=== PATIENT | female | born 1960 | race African-American/Black ===

== ENCOUNTER 2016-07-23 15:09 | Outpatient (RCR) | payer OTHER ==
[~2016-07-23 15:09] MED LIST: CALC-650 PO; CHOL10003 PO; CHOL100055 PO; CHOL40002 PO; CYAN10006 PO; CYAN50003 PO; D50KC PO; ESTR100P26 MC; ESTR1TAB24 PO; FISH1CAP15 PO; FRSM10B60 PO; HORMONE REPLACEMENT EXT; HYDR-3730 PO; HYOS0.1281 PO; LACT20SO2 PO; MAGN100T3 PO; METF500T4 PO; METO-354 PO; OMEP20TA2 PO; PANT40TA2 PO; PHEN37.53 PO; PHEN37.555 PO; POTA20TA8 PO; RT-ALBUINH IH; TPR25T PO; TRIA1TAB2 PO; TRIA1TAB5 PO
--- OUTSIDE RECORDS SUMMARY | 2016-07-23 15:14 | XMS REPORT | Continuity of Care Document ---
Author Author [facility] Organization [facility] Address Unknown Phone Unavailable Care Team Providers Care Drop Wire Hanger Name Role Phone Thania Zhu PCP [phone] Source Comments Some departments are not documenting in the electronic medical record. If you do not see the information that you expected, contact Release of Information in the Health Information Management department at [phone] for further assistance in locating additional records.[facility] Active Allergies and Adverse Reactions Allergen Noted Date Severity Reactions Comments Hydrocodone 03/18/2016 Low NAUSEA ONLY Sulfa (Sulfonamide 03/18/2016 Low NAUSEA ONLY Antibiotics) Current Medications Prescription Sig. Disp. Refills Start End Date Status Date ERGOCALCIFEROL (VITAMIN Take 1,000 mcg by mouth Active D2) (VITAMIN D PO) daily. triamterene/hydrochloroth Take 1 Tab by mouth Active iazide (MAXZIDE) 75/50 mg daily. tablet phentermine(+) 37.5 mg Take 37.5 mg by mouth Active tablet every morning. Patient states don't take everyday. cyanocobalamin (VITAMIN Take 1,000 mcg by mouth Active B-12) 1,000 mcg tablet daily. ALBUTEROL SULFATE Inhale by mouth as Active (VENTOLIN IN) Needed. potassium chloride SR Take 20 mEq by mouth Active (K-DUR) 20 mEq tablet daily. METFORMIN HCL (METFORMIN Take by mouth. Active PO) TOPIRAMATE (TOPAMAX PO) Take by mouth. Active Active Problems Problem Noted Date Bilateral nipple discharge 03/14/2016 Overview: DIAGNOSIS: Bilateral breast pain/itching and bilateral nipple discharge HISTORY: Ms. Frederick is an female who presented [facility] on 03[facility]18[facility]2016 at age 55 for evaluation of bilateral nipple discharge. Cytology of nipple discharge revealed no evidence of blood or malignancy. She reports having nipple discharge on and off for several years. She reports her biggest complaint now is left breast pain and itching that has been present since around December 2015. She has been advised to black currant seed oil, vitamin B complex, oral antihistamine, antifungal, hydrocortisone cream, stress reduction strategies, decreased caffeine intake, and NSAIDs for symptotic relief. BREAST IMAGING: Mammogram: -- Bilateral diagnostic mammogram 11/14/15 ([place], [place]) revealed no mass, architectural distortion, or suspicious calcifications. Ultrasound: -- Bilateral breast ultrasound 11/14/15 ([place], [place]) revealed no focal lesion. Mild duct ectasia with no focal lesion was seen. MRI: -- Bilateral breast MRI 01/31/16 ([place], [place]) revealed duct ectasia within bilateral retroareolar regions. No definite intraluminal mass. No suspicious mass or nonmass enhancement. -- Brain MRI 03/01/16 ([place], [place]) revealed normal pituitary gland. REPRODUCTIVE HEALTH: Age at first Menarche: 13 Age at First Live : N/A Age at Menopause: Hysterectomy in 1999, took HRT from [id number] and from 2012 - November 2015 : 0 Para: 0 : N/A PROCEDURE: pending PERTINENT PMH: HTN, fibromylagia FAMILY HISTORY: Maternal aunt with breast cancer in 60s PHYSICAL EXAM on PRESENTATION: Right - No palpable breast masses. No skin, nipple, or areolar change. Left - No palpable breast masses. No skin, nipple, or areolar change. No supraclavicular or axillary adenopathy. REFERRED BY: Dr Reena Zhu Chronic fatigue 04/09/2015 Disturbance of skin sensation 04/09/2015 Myalgia and myositis 04/09/2015 Dyspnea on exertion 04/09/2015 Most Recent Encounters Date Type Specialty Providers Description 07/22/2016 Ancillary Radiology Outpatient, Radiologist Diagnosis unknown Orders (Primary Dx) 07/09/2016 Hospital Radiology Encounter 07/03/2016 Orders Only Breast Clinic / Breast Olga Rivas MD Bilateral nipple Center discharge (Primary Dx) 07/02/2016 Orders Only Pulmonology Merced-Cindy Franco MD 07/02/2016 Telephone Breast Clinic / Breast Olga Rivas MD Appointment Center 07/01/2016 Telephone Breast Clinic / Breast Olga Rivas MD Referral - requesting a Center 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 06/11/2016 Hospital Radiology Olga Rivas MD Encounter 06/11/2016 Telephone Breast Clinic / Breast Purvi Villafuerte PA-C Results Center 06/10/2016 Screening Form 06/03/2016 Office Visit Oncology Olga Rivas MD Bilateral nipple discharge (Primary Dx) 06/03/2016 Hospital Radiology Olga Rivas MD Encounter 06/03/2016 [facility] Radiology Olga Rivas MD Canceled (PROVIDER Encounter CANCELED) 06/03/2016 Ancillary Breast Clinic / Breast Olga Rivas MD Bilateral nipple Orders Center discharge (Primary Dx) 05/23/2016 Telephone Breast Clinic / Breast Olga Rivas MD Other - BILATERAL nipple Center discharge Social History Tobacco Use Types Packs/Day Years Used Date Never Smoker Smokeless Tobacco: Never Used Alcohol Use Drinks/Week oz/Week Comments No 1-2 a yr Last Filed Vital Signs Vital Sign Reading Time Taken Blood Pressure 121/75 06/03/2016 1:02 PM CDT Pulse 107 06/03/2016 1:02 PM CDT Temperature 37.1 C (98.7 F) 06/03/2016 1:02 PM CDT Respiratory Rate 20 06/03/2016 1:02 PM CDT Height 1.613 m (5' 3.5") 06/03/2016 1:02 PM CDT Weight 83.008 kg (183 lb) 06/03/2016 1:02 PM CDT Body Mass Index 31.9 06/03/2016 1:02 PM CDT Oxygen Saturation 100% 06/03/2016 1:02 PM CDT Plan of Care Date Type Specialty Providers Description 08/04/2016 Appointment Pulmonology Obed Galicia MD [address] [facility] [address] [place] [address] [phone] (Fax) 08/15/2016 Appointment 10/22/2016 Appointment Breast Clinic / Breast Olga Rivas MD Center [address] [place] [address] [phone] (Fax) Health Maintenance Due Date Last Done Comments Hepatitis C Screening 1960 Physical (Comprehensive) 1967 Exam Pertussis Vaccine 1971 Tetanus Vaccine 1977 Cervical Cancer Screening 1981 Colorectal Cancer 2010 Screening Influenza Vaccine 06/05/2016 Breast Cancer Screening 03/18/2018 03/18/2016 Procedures from Last 3 Months Procedure Name Priority Date/Time Associated Diagnosis Comments PROCEDURES-SCAN 06/11/2016 Results for this 4:57 PM CDT procedure are in the results section. Results from Last [address] CHEST EXTERNAL IMAGING (07/09/2016) Narrative This order has been auto finalized and does not contain a result. PROCEDURES-SCAN (06/11/2016 4:57 PM) Narrative Ordered by an unspecified provider. MRI BREAST BILAT WO/W CONTRAST (06/11/2016 10:54 AM) Impressions ASSESSMENT: BIRAD 1-Negative RECOMMENDATION: Follow-up with your physician. Narrative Indicated problem(s): non-bloody discharge, skin changes to breast, and pain in both breasts. [id number] MRI BREAST BILAT W/O W CONTRAST: 2015 - Technologist: Laura Trent cook soup History: 55-year-old female with history of several years bilateral clear nipple discharge from multiple ducts as well as bilateral breast pain and bilateral breast itching. Technique: Bilateral breast MRI was performed with dedicated breast coil, with and without contrast in the axial plane using fat saturation, 3D, and with additional T1 and T2 axial images obtained. Images were interpreted with the aid of CAD, including 3D generation of MIP images, subtractions, and pharmacokinetic analysis. 0.2 ml/kg of Multihance (gadolinium) was injected in bolus fashion. Findings- Background enhancement: Minimal Tissue density- scattered fibroglandular tissue RIGHT BREAST: There is no evidence of abnormal mass or nonmass enhancement, or axillary/internal mammary adenopathy. LEFT BREAST: There is no evidence of abnormal mass or not mass enhancement, or axillary/internal mammary adenopathy. Ancillary findings: None Impression: No MR evidence of malignancy within either breast. Finalized by Maribel Lazar M.D. on 06/11/2016 12:50 PM. Dictated by Maribel Lazar M.D. on 06/11/2016 12:48 PM. Electronically signed and approved by: Maribel Lazar M.D. [id number] Procedure Note Interface, Radiant Results - ThuJun 11, 2016 12:51 PM CDT Indicated problem(s): non-bloody discharge, skin changes to breast, and pain in both breasts. [id number] MRI BREAST BILAT W/O W CONTRAST: 2015 - Technologist: Laura Trent, cook soup History: 55-year-old female with history of several years bilateral clear nipple discharge from multiple ducts as well as bilateral breast pain and bilateral breast itching. Technique: Bilateral breast MRI was performed with dedicated breast coil, with and without contrast in the axial plane using fat saturation, 3D, and with additional T1 and T2 axial images obtained. Images were interpreted with the aid of CAD, including 3D generation of MIP images, subtractions, and pharmacokinetic analysis. 0.2 ml/kg of Multihance (gadolinium) was injected in bolus fashion. Findings- Background enhancement: Minimal Tissue density- scattered fibroglandular tissue RIGHT BREAST: There is no evidence of abnormal mass or nonmass enhancement, or axillary/internal mammary adenopathy. LEFT BREAST: There is no evidence of abnormal mass or not mass enhancement, or axillary/internal mammary adenopathy. Ancillary findings: None Impression: No MR evidence of malignancy within either breast. Finalized by Maribel Lazar M.D. on 06/11/2016 12:50 PM. Dictated by Maribel Lazar M.D. on 06/11/2016 12:48 PM. Electronically signed and approved by: Maribel Lazar M.D. [id number] IMPRESSION ASSESSMENT: BIRAD 1-Negative RECOMMENDATION: Follow-up with your physician. MAMMO DUCT MULTIPLE INCOMPLETE (06/03/2016 11:31 AM) Impressions RECOMMENDATION: Follow-up with your physician of both breasts. Narrative Reason for exam: clinical finding. incompleteductogram Performed by: Moises Feliciano [id number] MAMMO DUCT MULTIPLE INCOMPLETE: JUNE 03, 2016 - Routine views. Technologist: Moises Feliciano Prior study comparison: March 18, 2016, bilateral [id number] MAMMO DIAGNOSTIC SMILEY/ANGELI, performed at [facility] C.March 18, 2016, left breast [id number] US BREAST TARGET LT, performed at [facility]. 55-year-old female with chronic bilateral clear nipple discharge (at least 15 years) and bilateral breast pain and itching, left greater than right, for bilateral ductogram. A small amount of clear nipple discharge was expressed from multiple ducts bilaterally and ductography cannot be adequately performed for evaluation. Patient may benefit from breast MRI with and without contrast if this has not already been performed. Findings and recommendations were discussed with Dr. Rivas by Dr. Govea. Approved by Matthias Romero MD on 06/03/2016 11:41 AM By my electronic signature, I attest that I have personally reviewed the images for this examination and formulated the interpretations and opinions expressed in this report Finalized by Janae GOVEA M.D. on 06/03/2016 1:06 PM. Dictated by Matthias Romero MD on 06/03/2016 11:33 AM. Electronically signed and approved by: Janae Govea M.D. [id number] Procedure Note Interface, Radiant Results - Tue Jun 03, 2016 1:07 PM CDT Reason for exam: clinical finding. incomplete ductogram Performed by: Moises Feliciano [id number] MAMMO DUCT MULTIPLE INCOMPLETE: JUNE 03, 2016 - Routine views. Technologist: Moises Feliciano Prior study comparison: March 18, 2016, bilateral [id number] MAMMO DIAGNOSTIC SMILEY/ANGELI, performed at [facility]. March 18, 2016, left breast [id number] US BREAST TARGET LT, performed at [facility]. 55-year-old female with chronic bilateral clear nipple discharge (at least 15 years) and bilateral breast pain and itching, left greater than right, for bilateral ductogram. A small amount of clear nipple discharge was expressed from multiple ducts bilaterally and ductography cannot be adequately performed for evaluation. Patient may benefit from breast MRI with and without contrast if this has not already been performed. Findings and recommendations were discussed with Dr. Rivas by Dr. Govea. Approved by Matthias Romero MD on 06/03/2016 11:41 AM By my electronic signature, I attest that I have personally reviewed the images for this examination and formulated the interpretations and opinions expressed in this report Finalized by Janae GOVEA M.D. on 06/03/2016 1:06 PM. Dictated by Matthias Romero MD on 06/03/2016 11:33 AM. Electronically signed and approved by: Janae Govea M.D. [id number] IMPRESSION RECOMMENDATION: Follow-up with your physician of both breasts.
== END 2016-10-21 | disposition home or self-care (01) ==
LOC: CARD 15:09
PROVIDERS: ATTEND Internal Medicine Interventional Cardiology
DX: R06.09 Other forms of dyspnea (principal); R07.9 Chest pain, unspecified
CPT/HCPCS: 93225; 93226

== ENCOUNTER → 2017-07-31 | Outpatient (CLI) | payer OTHER ==
[~2017-07-31] MED LIST changes: -D50KC PO; +ERGO50006 PO; +GADOBUTROL 7.5 MMOL/7.5 ML (GADAVIST) VIAL IV ONE
[2017-07-31 10:29] LABS: BLOOD UREA NITROGEN 13 MG/DL (7-18); BUN/CREATININE RATIO 15; CREATININE SERUM 0.86 MG/DL (0.60-1.30); GFR ESTIMATED > 60
--- NOTE | 2017-08-03 20:22 | Diagnostic Imaging Report ---
TECHNIQUE: Utilizing 1.5 Katie magnet, patient was placed in a prone position with 8-channel dual breast coil utilized. Axial STIR precontrasted image and axial T1 fat-sat postcontrast high-resolution images obtained. Sagittal T2-weighted images precontrast, bilaterally, as well. Sagittal vibrant temporal images were obtained pre and post contrast with bolus technique utilized of gadolinium. Images are postcontrast immediately and subsequently for 7 minutes. Pre and post contrasted images are then evaluated with [employer] for evaluation of possible angiogenesis. INDICATION: Bilateral clear nipple discharge. COMPARISON: June 11, 2016, and January 31, 2016. FINDINGS: The bilateral breasts demonstrate mild background glandularity. The bilateral breasts demonstrate minimal background enhancement. No significant axillary or internal mammary adenopathy. Visualized portions of the upper abdomen are unremarkable. Dilated ducts are noted within the bilateral retroareolar regions. These dilated ducts extend into all four quadrants of the bilateral breasts. This appears similar to the prior examination without definite filling defect. No additional suspicious mass or non-mass enhancement within either breast. IMPRESSION: Stable examination without evidence of malignancy. Stable symmetric bilateral dilated ducts without intraluminal filling defect. ACR BI-RADS Category 2: Benign findings. Follow-up: The most recent mammograms for comparison are from March 2016. If these are the most recent mammograms, then the patient will be due for bilateral mammograms at this time. If patient has had mammograms performed at an outside facility, then those images and report should be referenced. Recommend clinical correlation and clinical follow-up for the bilateral clear nipple discharge without concerning MRI correlate. Dictated by: Dictated on workstation # [id number]
== END ==
LOC: RAD 10:00
PROVIDERS: ATTEND Nurse Practitioner Family
DX: N64.52 Nipple discharge (principal)
CPT/HCPCS: 36415; 77059; 82565; 84520

== ENCOUNTER → 2018-01-05 | Outpatient (CLI) | payer SELFPAY ==
[~2018-01-05] MED LIST changes: +CATHETER FLUSH 10 ML SYR IV PRN; -GADOBUTROL 7.5 MMOL/7.5 ML (GADAVIST) VIAL IV ONE; +IOHEXOL 350 MG/ML 150 ML (OMNIPAQUE 350) VIAL IV ONE; +NS 250 ML (IVPB) BAG IV ONE
[2018-01-05 08:06] VITALS: BP 117/84
[2018-01-05 08:09] VITALS: BP 223/99
[2018-01-05 08:12] VITALS: BP 157/85
[2018-01-05 08:17] VITALS: BP 114/86
--- NOTE | 2018-01-05 09:32 | Diagnostic Imaging Report ---
PROCEDURE: CT angiography of the chest with contrast. TECHNIQUE: Multiple contiguous axial images were obtained through the chest after uneventful bolus administration of intravenous contrast. Reconstructed CTA MIP acquisitions were also performed. INDICATION: Shortness of breath on exertion. Blood clot under left arm. Decreased sats on cardiac stress test. FINDINGS: There are no discrete pulmonary nodules, masses or infiltrates. No pleural or pericardial fluid. There is no pneumothorax. No pathologically enlarged adenopathy in the chest. The thoracic aorta is normal in caliber without evidence of dissection. There are no filling defects seen within the pulmonary arteries to suggest pulmonary embolism. There is a small cyst in the left kidney. The remaining intra-abdominal structures are unremarkable. The osseous structures are grossly unremarkable. IMPRESSION: No acute abnormality of the chest. Specifically there is no evidence of pulmonary embolism or aortic dissection. Left renal cyst. Dictated by: Dictated on workstation # [id number]
--- NOTE | 2018-01-06 06:24 | STRESS TEST ---
DATE OF SERVICE: 01/05/2018 REPORT TITLE: RESTING AND POST EXERCISE TECHNETIUM-99M TETROFOSMIN SPECT CT IMAGING. ORDERING PHYSICIAN: Dr. Hao Jacob. PRIMARY PHYSICIAN: Dr. Hao Jacob. CLINICAL DIAGNOSIS: Chest discomfort. DESCRIPTION: Baseline images were carried out after injection of 10.73 mCi technetium-99m Tetrofosmin. This was followed by exercise on a treadmill. The details of the stress test are reported separately by Dr. Jacob, under whose supervision the stress test was carried out. The patient received 30.7 mCi technetium-99m Tetrofosmin after she had attained 85% of maximum predicted heart rate and the exercise was continued for another minute. Review of images at rest and following stress does not indicate any significant perfusion defect consistent with significant myocardial ischemia or infarction. Gated images show normal global systolic function with normal regional wall motion. Left ventricular ejection fraction calculated to be 71%. Left ventricular end diastolic volume is 15 mL. TID is absent (1). CONCLUSIONS: 1. No evidence of significant myocardial ischemia or infarction is seen. 2. Normal to hyperdynamic left ventricle with a calculated ejection fraction of 71%. 3. Somewhat low-volume, hyperdynamic left ventricle. Job ID: [id number] DocumentID: [id number] Dictated Date: 01/05/2018 17:54:54 Manufacturing Recruiter Date: 01/05/2018 21:51:56 Dictated By: BARNEY SHELL MD, MA, FACP, FACC, MTDD
== END ==
LOC: CARD 06:57
PROVIDERS: ATTEND Internal Medicine
DX: R07.9 Chest pain, unspecified (principal)
CPT/HCPCS: 71275; 78452; 93017

== ENCOUNTER → 2018-06-26 | Outpatient (CLI) | payer SELFPAY ==
[~2018-06-26] MED LIST changes: -CATHETER FLUSH 10 ML SYR IV PRN; -IOHEXOL 350 MG/ML 150 ML (OMNIPAQUE 350) VIAL IV ONE; +METF-397 PO; -METF500T4 PO; -NS 250 ML (IVPB) BAG IV ONE
== END ==
LOC: LAB 08:20
PROVIDERS: ATTEND Internal Medicine
DX: E11.9 Type 2 diabetes mellitus without complications (principal)
CPT/HCPCS: 36415; 83036

== ENCOUNTER 2018-07-05 11:48 | Emergency (ER) | payer SELFPAY ==
[~2018-07-05] VITALS: Ht 162.6 cm; Wt 90.7 kg
--- NOTE | 2018-07-05 12:09 | ED General ---
General Stated Complaint: LEFT ARM PAIN;POSS BLOOD CLOT Source of Information: Patient Exam Limitations: No Limitations History of Present Illness Date Seen by Provider: Jul 05, 2018 Time Seen by Provider: 12:03 Initial Comments To ER with several complaints. She believes she may have a clot in the left arm. She had a clot in the left arm venous system in January of this year. She completed 3 months of Xarelto therapy. This clot was discovered after she noticed some bruising to the left forearm following knee surgery. She has no other known history of clotting disorder. About 3 weeks ago she had blood drawn from the left antecubital fossa. About 2 weeks ago she developed this pain and discomfort in the volar surface of the left forearm worse with flexion of the wrist. She does not notice any swelling or redness of the upper extremity. She reports chronic swelling to the bilateral lower extremities, and unusual small bruise to the right medial thigh that she does not recall getting and another small bruise to the left medial lower leg that she does not recall getting. She denies any shortness of breath but she does also report some central minor chest pain constant for about 3 days. She states "I feel like I'm coming down with the flu and it settled in my chest". She denies any cough or fevers or chills. Timing/Duration: Changing Over Time Severity: Moderate Associated Systoms: Chest Pain; No Cough, No Fever/Chills; Malaise; No Nausea/ Vomiting, No Seizure, No Shortness of Air, No Syncope, No Weakness Allergies and Home Medications Allergies Coded Allergies: No Known Drug Allergies (Unverified , 06/03/16) Home Medications Cholecalciferol (Vitamin D3) 1,000 Unit Tablet, 1,000 UNIT PO DAILY, (Reported) Cyanocobalamin (Vitamin B-12) 5,000 Mcg Tab.rapdis, 2,500 MCG PO DAILY, ( Reported) TAKES 1/2 (5,000MCG) TABLET Ergocalciferol (Vitamin D2) 50,000 Unit Capsule, 50,000 UNIT PO Robles, (Reported) Metformin HCl 500 Mg Tablet, 250 MG PO BID, (Reported) TAKES 1/2 (500MG) TABLET Potassium Chloride 20 Meq Tab.er.prt, 20 MEQ PO BID, (Reported) Topiramate 25 Mg Tablet, 25 MG PO BID, (Reported) Triamterene/Hydrochlorothiazid 1 Each Tablet, 1 TAB PO DAILY, (Reported) Patient Home Medication List Home Medication List Reviewed: Yes Review of Systems Review of Systems Constitutional: see HPI; No chills; malaise EENTM: see HPI Respiratory: no symptoms reported; No cough, No short of breath Cardiovascular: see HPI, chest pain Musculoskeletal: see HPI Skin: see HPI Psychiatric/Neurological: No Symptoms Reported Hematologic/Lymphatic: No Symptoms Reported Past Hqcnmuh-Uibyhy-Fzvhsj Hx Patient Social History Recent Hopitalizations: No Immunizations Up To Date Tetanus Booster (TDap): Unknown PED Vaccines UTD: No Seasonal Allergies Seasonal Allergies: No Past Medical History Appendectomy, Hysterectomy Currently Using CPAP: No Currently Using BIPAP: No Reproductive Disorders: Yes (1999 total hysterectomy) Female Reproductive Disorders: Denies OPTICIAN History: Hysterectomy Sexually Transmitted Disease: No HIV/AIDS: No Family Medical History Patient reports no known family medical history. No Pertinent Family Hx Physical Exam Vital Signs Vital Signs - First Documented 07/05/18 12:00 Temp 98.0 Pulse 87 Resp 18 B/P (MAP) 153/88 (109) Capillary Refill : Height, Weight, BMI Height: 5'2.00" Weight: 185lbs. 0.0oz. 83.315128vo; 33.8 BMI Method:Estimated General Appearance: No Apparent Distress, WD/WN, Other (she is in no distress, there is no tachycardia or hypoxia. She is 100% on room air oxygen saturation, heart rate in the 80s. She is not on any beta blockers.) Eyes: Bilateral Eye Normal Inspection, Bilateral Eye PERRL, Bilateral Eye EOMI HEENT: PERRL/EOMI Neck: Full Range of Motion, Normal Inspection Respiratory: Normal Breath Sounds, No Accessory Muscle Use, No Respiratory Distress Cardiovascular: Regular Rate, Rhythm, Normal Peripheral Pulses Gastrointestinal: Normal Bowel Sounds, Non Tender, Soft Extremity: Normal Capillary Refill, No Calf Tenderness, Other (minor small nickel-sized bruises one to the medial right thigh as she described and one to the medial left lower leg as she described. There is otherwise no obvious swelling to either lower or upper extremity. There is no ecchymosis or erythema to the volar aspect of the proximal left forearm where she complains of pain) Neurologic/Psychiatric: Alert, Oriented x3, No Motor/Sensory Deficits Progress/Results/Core Measures Suspected Sepsis SIRS Temperature: Pulse: Respiratory Rate: Laboratory Tests 07/05/18 12:44: White Blood Count 7.8 Blood Pressure / Mean: Laboratory Tests 07/05/18 12:44: Creatinine 0.86, Platelet Count 262, Total Bilirubin 0.5 Results/Orders Lab Results Laboratory Tests Test 07/05/18 12:44 Range/Units White Blood Count 7.8 4.3-11.0 10^3/uL Red Blood Count 4.83 4.35-5.85 10^6/uL Hemoglobin 15.2 11.5-16.0 G/DL Hematocrit 46 35-52 % Mean Corpuscular Volume 95 80-99 FL Mean Corpuscular Hemoglobin 32 25-34 PG Mean Corpuscular Hemoglobin Concent 33 32-36 G/DL Red Cell Distribution Width 13.9 10.0-14.5 % Platelet Count 262 130-400 10^3/uL Mean Platelet Volume 9.2 7.4-10.4 FL Neutrophils (%) (Auto) 59 42-75 % Lymphocytes (%) (Auto) 33 12-44 % Monocytes (%) (Auto) 7 0-12 % Eosinophils (%) (Auto) 1 0-10 % Basophils (%) (Auto) 0 0-10 % Neutrophils # (Auto) 4.6 1.8-7.8 X 10^3 Lymphocytes # (Auto) 2.5 1.0-4.0 X 10^3 Monocytes # (Auto) 0.6 0.0-1.0 X 10^3 Eosinophils # (Auto) 0.1 0.0-0.3 10^3/uL Basophils # (Auto) 0.0 0.0-0.1 10^3/uL Sodium Level 140 135-145 MMOL/L Potassium Level 4.1 3.6-5.0 MMOL/L Chloride Level 107 98-107 MMOL/L Carbon Dioxide Level 22 21-32 MMOL/L Anion Gap 11 5-14 MMOL/L Blood Urea Nitrogen 13 7-18 MG/DL Creatinine 0.86 0.60-1.30 MG/DL Estimat Glomerular Filtration Rate > 60 BUN/Creatinine Ratio 15 Glucose Level 104 70-105 MG/DL Calcium Level 9.9 8.5-10.1 MG/DL Corrected Calcium 9.7 8.5-10.1 MG/DL Total Bilirubin 0.5 0.1-1.0 MG/DL Aspartate Amino Transf (AST/SGOT) 32 5-34 U/L Alanine Aminotransferase (ALT/SGPT) 35 0-55 U/L Alkaline Phosphatase 148 H 40-136 U/L Troponin I < 0.30 <0.30 NG/ML B-Type Natriuretic Peptide < 10.0 <100.0 PG/ML Total Protein 8.1 6.4-8.2 GM/DL Albumin 4.3 3.2-4.5 GM/DL Thyroid Stimulating Hormone (TSH) 0.80 0.35-4.94 UIU/ML My Orders Orders - WILIAM LOPEZ APRN Us Venous Upper Ext Lt (07/05/18 11:53) Troponin I (07/05/18 12:02) Ekg Tracing (07/05/18 12:02) Cbc With Automated Diff (07/05/18 12:02) Comprehensive Metabolic Panel (07/05/18 12:02) BNP (07/05/18 12:02) Thyroid Stimulating Hormone (07/05/18 12:02) Vital Signs/I&O 07/05/18 12:00 Temp 98.0 Pulse 87 Resp 18 B/P (MAP) 153/88 (109) Capillary Refill : Departure Communication (Admissions) 1226-she had a cardiac catheterization done here in June 2016 showing no angiographically significant coronary artery disease. Impression Primary Impression: Chest pain Additional Impression: Left forearm pain Disposition: 01 HOME, SELF-CARE Condition: Stable Departure-Patient Inst. Decision time for Depature: 12:08 Referrals: SANDRA JACOB DO (PCP/Family) Primary Care Physician Patient Instructions: General (DC) Add. Discharge Instructions: 1. Return to ER for any worsening pain, fevers or other concerns. Tylenol and ibuprofen for pain control. Follow-up with Dr. Jacob. Call today to make an appointment to be seen later this week for recheck. Copy Copies To 1: SANDRA JACOB PETER J APRN Jul 05, 2018 12:09
--- NOTE | 2018-07-05 12:43 | Diagnostic Imaging Report ---
PROCEDURE: US venous upper extremity left. TECHNIQUE: Multiple realtime grayscale images were obtained of left upper extremity in various projections. Duplex Doppler and and color Doppler images were also obtained. INDICATION: Left arm pain and swelling. The left internal jugular vein as well as the left subclavian and axillary veins are patent. The brachial vein is patent. The basilic and cephalic as well as the radial and ulnar veins are patent. No thrombus is seen. No fluid collection is identified. IMPRESSION: No evidence of a left upper extremity DVT. Dictated by: Dictated on workstation # [id number]
--- OUTSIDE RECORDS SUMMARY | 2018-07-05 12:47 | XMS REPORT ---
Author Author MELIA MARIN [facility] eClinicalWorks Address Unknown Phone Unavailable Care Team Providers Care Film Writer Name Role Phone MELIA MARIN Unavailable Allergies No Known Allergies Problems Problem Type Condition Code Onset Dates Condition Status Problem Vitamin D deficiency E55.9 Active Problem Chronic kidney disease, unspecified stage N18.9 Active Problem Mild intermittent asthma without complication J45.20 Active Problem Prediabetes R73.09 Active Problem Carpal tunnel syndrome, unspecified laterality G56.00 Active Problem Lumbosacral radiculopathy M54.17 Active Problem Shortness of breath R06.02 Active Problem Fibromyalgia M79.7 Active Medications No Known Medications Results No Known Results Summary Purpose eClinicalWorks Submission
--- OUTSIDE RECORDS SUMMARY | 2018-07-05 12:47 | XMS REPORT ---
Author MELIA Fraser eClinicalWorks Address Unknown Phone Unavailable Care Team Providers Care Music Researcher Name Role Phone MELIA MARIN Unavailable Allergies, Adverse Reactions, Alerts Substance Reaction Event Type N.K.D.A. Info Not Available Non Drug Allergy Problems Problem Type Condition Code Onset Dates Condition Status Assessment Fibromyalgia M79.7 Active Problem Lumbosacral radiculopathy M54.17 Active Problem Vitamin D deficiency E55.9 Active Problem Menopausal and perimenopausal disorder N95.9 Active Problem Prediabetes R73.09 Active Problem Chronic kidney disease, stage I N18.1 Active Problem Fibromyalgia M79.7 Active Problem Carpal tunnel syndrome, unspecified laterality G56.00 Active Problem Mild intermittent asthma without complication J45.20 Active Problem Shortness of breath R06.02 Active Assessment Swelling R60.9 Active Assessment Menopausal and perimenopausal disorder N95.9 Active Assessment Left knee pain M25.562 Active Assessment Right wrist pain M25.531 Active Assessment Chronic kidney disease, stage I N18.1 Active Medications Medication Code System Code Instructions Start Date End Date Status Dosage Ventolin HFA [facility] [address]-67 108 (90 Base) MCG/ACT Inhalation every 4 hrs May 24, 2015 2 puffs as needed Vitamin D2 [facility] [address] 50,000 unit Nov 08, 2014 take 1 capsule (50,000 unit) by oral route once weekly for 12 weeks Metformin HCl [facility] 67731346381 1000 MG Orally Twice a day 1 tablet with meals Vitamin B-[address] [facility] [address]-35 1000 MCG Orally Once a day 1 tablet Triamterene-HCTZ [facility] 88231965632 75-50MG Orally Once a day 1 tablet in the morning Estradiol [facility] 40288299171 1MG take 1 tablet by Oral route 1 time per day Lyrica [facility] [address]-77 75 MG Orally Twice a day Oct 09, 2015 1 capsule Proventil HFA [facility] [address]-60 108 (90 Base) MCG/ACT Inhalation every 4 hrs May 24, 2015 2 puffs as needed Procedures Procedure Coding System Code Date Office Visit, Est Pt., Level 4 CPT-4 43260 Oct 09, 2015 X-RAY EXAM OF WRIST CPT-4 28172 Oct 09, 2015 X-RAY EXAM OF KNEE, 3 CPT-4 65098 Oct 09, 2015 Vital Signs Date/Time: Oct 09, 2015 Temperature 98.1 F Weight 174.9 lbs Height 64 in BMI 30.02 Index Blood Pressure Diastolic 70 mmHg Blood Pressure Systolic 138 mmHg Cardiac Monitoring Heart Rate 98 bpm Results No Known Results Summary Purpose eClinicalWorks Submission
--- OUTSIDE RECORDS SUMMARY | 2018-07-05 12:47 | XMS REPORT | Clinical Summary ---
Author Author [facility] Organization [facility] Address Unknown Phone Unavailable Care Team Providers Care Bridge Teacher Name Role Phone Gege Daniel MD Unavailable Outpatient, Radiologist Unavailable Unavailable Francia Malik PA-C Unavailable Reena Zhu MD PCP Evelyne Freire RN Unavailable Unavailable Olga Rivas MD Unavailable Purvi Villafuerte PA-C Unavailable Source Comments Some departments are not documenting in the electronic medical record. If you do not see the information that you expected, contact Release of Information in the Health Information Management department at [phone] for further assistance in locating additional records.[facility] Allergies Active Allergy Reactions Severity Noted Date Comments Hydrocodone NAUSEA ONLY Low 03/18/2016 Sulfa (Sulfonamide NAUSEA ONLY Low 03/18/2016 Antibiotics) Current Medications Prescription Sig. Disp. Refills Start End Date Status Date ERGOCALCIFEROL (VITAMIN Take 1,000 mcg by mouth Active D2) (VITAMIN D PO) daily. cyanocobalamin (VITAMIN Take 2,500 mcg by mouth Active B-12) 1,000 mcg tablet daily. ALBUTEROL SULFATE Inhale by mouth as Active (VENTOLIN IN) Needed. TOPIRAMATE (TOPAMAX PO) Take 25 mg by mouth twice Active daily. potassium chloride SR Take 20 mEq by mouth Active (K-DUR) 20 mEq tablet twice daily. Take with a meal and a full glass of water. metFORMIN (GLUCOPHAGE) Take 250 mg by mouth Active 500 mg tablet twice daily with meals. ergocalciferol (VITAMIN Take 1 Cap by mouth every Active D-2) 50,000 unit capsule 7 days. triamterene-hydrochloroth Take 0.5 Tabs by mouth 90 Tab 09/08/20 Active iazide (MAXZIDE) 75-50 mg every morning. 16 tablet nadolol(+) (CORGARD) 20 Take 1 Tab by mouth twice 90 Tab 0 09/25/20 Active mg tablet daily. You will start 16 with half tablet twice a day then after a week increase to a full tablet twice a day. Active Problems Problem Noted Date Tachycardia 09/08/2016 Obstructive sleep apnea 09/08/2016 Substernal chest pain 09/08/2016 Bilateral nipple discharge 03/14/2016 Overview: DIAGNOSIS: Bilateral [...] IMAGING: Mammogram: -- Bilateral diagnostic mammogram 11/14/15 ([place], [place]) revealed no mass, architectural distortion, or suspicious calcifications. Ultrasound: -- Bilateral breast ultrasound 11/14/15 ([place], [place]) revealed no focal lesion. Mild duct ectasia with no focal lesion was seen. MRI: -- Bilateral breast MRI 01/31/16 ([place], [place]) revealed duct ectasia within bilateral retroareolar regions. No definite intraluminal mass. No suspicious mass or nonmass enhancement. -- Brain MRI 03/01/16 ([place], [place]) revealed normal pituitary gland. REPRODUCTIVE HEALTH: Age at first Menarche: 13 Age at First Live : N/A Age at Menopause: Hysterectomy in 1999, took HRT from 6633-1778 and from 2012 - November 2015 : [...] and myositis 04/09/2015 Dyspnea on exertion 04/09/2015 Family History Medical History Relation Name Comments Arthritis-rheumatoid Father Diabetes Father Hypertension Father Cancer-Breast Maternal Aunt 60s Cancer Maternal Aunt cervical 60-70s Hypertension Maternal Aunt Arthritis-rheumatoid Mother Cancer Mother non-hodgkins Hypertension Mother Relation Name Status Comments Father Maternal Aunt Maternal Aunt Maternal Grandfather Maternal Grandmother Mother Paternal Grandfather Paternal Grandmother Social History Tobacco Use Types Packs/Day Years Used Date Never Smoker Smokeless Tobacco: Never Used Alcohol Use Drinks/Week oz/Week Comments No 1-2 a yr Sex Assigned at Date Recorded Not on file Last Filed Vital Signs Vital Sign Reading Time Taken Blood Pressure 118/86 09/08/2016 12:47 PM TEST HOLE DRILLER Pulse 100 09/08/2016 12:47 PM TEST [employer]LE [facility]RILLER Temperature 37.1 C (98.8 F) 08/04/2016 12:36 PM CDT Respiratory Rate 16 08/04/2016 12:36 PM CDT Oxygen Saturation 98% 08/04/2016 12:36 PM CDT Inhaled Oxygen - - Concentration Weight 86.2 kg (190 lb) 09/08/2016 12:47 PM TEST HOLE DRILLER Height 162.6 cm (5' 4") 09/08/2016 12:47 PM TEST HOLE DRILLER Body Mass Index 32.61 09/08/2016 12:47 PM TEST HOLE DRILLER Plan of Treatment Health Maintenance Due Date Last Done Comments HEPATITIS C SCREENING 1960 PHYSICAL (COMPREHENSIVE) 1967 EXAM PERTUSSIS VACCINE 1971 HIV SCREENING 1975 TETANUS VACCINE 1977 CERVICAL CANCER SCREENING 1990 COLORECTAL CANCER 2010 SCREENING SHINGLES RECOMBINANT 2010 VACCINE (1 of 2) BREAST CANCER SCREENING 03/18/2017 03/18/2016 INFLUENZA VACCINE 05/05/2018 Results Not on filefrom Last 3 Months
--- OUTSIDE RECORDS SUMMARY | 2018-07-05 12:47 | XMS REPORT ---
Author Author MELIA MARIN [facility] eClinicalWorks Address Unknown Phone Unavailable Care Team Providers Care Folding Rules Printing Machine Operator Name Role Phone MELIA MARIN CP Unavailable Allergies No Known Allergies Problems Problem Type Condition ICD-9 Code Onset Dates Condition Status Problem Prediabetes 790.29 Active Problem Asthma 493.90 Active Problem Shortness of breath 786.05 Active Problem Chronic kidney disease 585.9 Active Problem Lumbosacral radiculopathy at S1 724.4 Active Problem Vitamin D deficiency 268.9 Active Problem Fibromyalgia 729.1 Active Problem Carpal tunnel syndrome on right 354.0 Active Medications Medication Code System Code Instructions Start Date End Date Status Dosage Triamterene-HCTZ [facility] 83421162307 75-50 Orally Once a day 1 tablet in the morning Results No Known Results Summary Purpose eClinicalWorks Submission
--- OUTSIDE RECORDS SUMMARY | 2018-07-05 12:47 | XMS REPORT ---
Author Author MELIA MARIN eClinicalWorks Address Unknown Phone Unavailable Care Team Providers Care Sales Department Manager Name Role Phone MELIA MARIN CP Unavailable Allergies No Known Allergies Problems Problem Type Condition Code Onset Dates Condition Status Assessment Other mcfp (current) drug therapy Z79.899 Active Problem Vitamin D deficiency E55.9 Active Assessment Chronic kidney disease, stage III (moderate) N18.3 Active Assessment Other fatigue R53.83 Active Problem Chronic kidney disease, unspecified stage N18.9 Active Problem Mild intermittent asthma without complication J45.20 Active Problem Prediabetes R73.09 Active Problem Carpal tunnel syndrome, unspecified laterality G56.00 Active Problem Lumbosacral radiculopathy M54.17 Active Problem Shortness of breath R06.02 Active Problem Fibromyalgia M79.7 Active Medications No Known Medications Procedures Procedure Coding System Code Date ASSAY OF PROTEIN, URINE CPT-4 24240 Oct 03, 2015 ASSAY OF URINE CREATININE CPT-4 07294 Oct 03, 2015 RENAL FUNCTION PANEL CPT-4 96527 Oct 03, 2015 URINE CULTURE/COLONY COUNT CPT-4 77951 Oct 03, 2015 COMPLETE CBC W/AUTO DIFF WBC CPT-4 93887 Oct 03, 2015 ASSAY OF MAGNESIUM CPT-4 53688 Oct 03, 2015 URINALYSIS, AUTO, W/O SCOPE CPT-4 05428 Oct 03, 2015 VENIPUNCT, ROUTINE* CPT-4 67900 Oct 03, 2015 Results Name Result Date Reference Range Unit Abnormality Flag ROUTINE VENIPUNCTURE Summary Purpose eClinicalWorks Submission
--- OUTSIDE RECORDS SUMMARY | 2018-07-05 12:48 | XMS REPORT ---
Author Author ANGEL LUIS GOEL eClinicalWorks Address Unknown Phone Unavailable Care Team Providers Care Spinner Fixer Name Role Phone ANGEL LUIS GOEL CP Unavailable Allergies, Adverse Reactions, Alerts Substance Reaction Event Type Sulfacetamide Sodium Info Not Available Drug Allergy Codeine Sulfate Info Not Available Drug Allergy Problems Problem Type Condition Code Onset Dates Condition Status Problem Other constipation K59.09 Active Problem Breast tenderness N64.4 Active Problem Dense breast tissue R92.2 Active Problem Nipple discharge N64.52 Active Assessment Encounter for dental examination Z01.20 Active Problem History of hysterectomy Z90.710 Active Problem Encounter for dental examination Z01.20 Active Problem Stress F43.9 Active Problem Hormone replacement therapy Z79.890 Active Problem Left knee pain M25.562 Active Problem Depression, unspecified depression type F32.9 Active Problem Carpal tunnel syndrome, unspecified laterality G56.00 Active Problem Fibromyalgia M79.7 Active Problem Vitamin D deficiency E55.9 Active Problem Lumbosacral radiculopathy M54.17 Active Problem Prediabetes R73.09 Active Problem Menopausal and perimenopausal disorder N95.9 Active Problem Shortness of breath R06.02 Active Problem Chronic kidney disease, stage I N18.1 Active Problem Mild intermittent asthma without complication J45.20 Active Problem Lower abdominal tenderness R10.819 Active Medications Medication Code System Code Instructions Start Date End Date Status Dosage Vitamin D (Cholecalciferol) [facility] [address]-27 1000 UNIT Orally Once a day 1 tablet Triamterene-HCTZ [facility] 22165116038 75-50MG Orally Once a day 1 tablet in the morning Vitamin B-12 [facility] [address]-93 1000 MCG Orally Once a day 1 tablet Estradiol [facility] [address]-08 1 MG Orally Once a day Oct 15, 2015 1 tablet Amitriptyline HCl [facility] [address]-62 10 MG Orally Once a day at bedtime, increase to 2 tabs after 1 week and 3 tabs after 2 weeks, call for further increase if needed Nov 06, 2015 1 tablet Ventolin HFA [facility] [address]-60 108 (90 Base) MCG/ACT Inhalation every 4 hrs May 24, 2015 2 puffs as needed Procedures Procedure Coding System Code Date INTRAORL-PERIAPICAL 1 FILM 53834 CPT-4 D0220 Nov 08, 2015 INTRAORL-PERIAPICAL EA ADD FILM CPT-4 D0230 Nov 08, 2015 COMP ORAL EVALUATION - NEW/EST PT CPT-4 D0150 Nov 08, 2015 Billing Notes on claim CPT-4 EC109 Nov 08, 2015 TOPICAL FLUORIDE VARNISH CPT-4 D1206 Nov 08, 2015 BITEWINGS - FOUR FILMS CPT-4 D0274 Nov 08, 2015 INTRAORL-PERIAPICAL EA ADD FILM CPT-4 D0230 Nov 08, 2015 PROPHYLAXIS - ADULT CPT-4 D1110 Nov 08, 2015 PANORAMIC FILM SEE ALSO CODE 60667 CPT-4 D0330 Nov 08, 2015 Vital Signs Date/Time: Nov 08, 2015 Blood Pressure Diastolic 79 mmHg Blood Pressure Systolic 118 mmHg Cardiac Monitoring Heart Rate 89 bpm Results No Known Results Summary Purpose eClinicalWorks Submission
--- OUTSIDE RECORDS SUMMARY | 2018-07-05 12:48 | XMS REPORT ---
Author Author NAZ MYERS Organization [employer]Clinical[employer] Address Unknown Phone Unavailable Care Team Providers Care Paint Mixer Machine Name Role Phone NAZ MYERS CP Unavailable Allergies, Adverse Reactions, Alerts Substance Reaction Event Type Sulfacetamide Sodium Info Not Available Drug Allergy Codeine Sulfate Info Not Available Drug Allergy Problems Problem Type Condition Code Onset Dates Condition Status Assessment Encounter for dental examination Z01.20 Active Problem Lumbosacral radiculopathy M54.17 Active Problem Vitamin D deficiency E55.9 Active Problem Menopausal and perimenopausal disorder N95.9 Active Problem Prediabetes R73.09 Active Problem Chronic kidney disease, stage I N18.1 Active Problem Fibromyalgia M79.7 Active Problem Carpal tunnel syndrome, unspecified laterality G56.00 Active Problem Mild intermittent asthma without complication J45.20 Active Problem Shortness of breath R06.02 Active Medications Medication Code System Code Instructions Start Date End Date Status Dosage Lyrica [facility] [address]-80 75 MG Orally Twice a day Oct 09, 2015 1 capsule Estradiol [facility] [address]-35 1 MG Orally Once a day Oct 15, 2015 1 tablet Ventolin HFA [facility] [address]-86 108 (90 Base) MCG/ACT Inhalation every 4 hrs May 24, 2015 2 puffs as needed Vitamin D2 [facility] [address] 50,000 unit Nov 08, 2014 take 1 capsule (50,000 unit) by oral route once weekly for 12 weeks Triamterene-HCTZ [facility] 88331993691 75-50MG Orally Once a day 1 tablet in the morning Vitamin B-12 [facility] [address]-78 1000 MCG Orally Once a day 1 tablet Procedures Procedure Coding System Code Date LTD ORAL EVALUATION - PROBLEM FOCUS CPT-4 D0140 Oct 23, 2015 Vital Signs Date/Time: Oct 23, 2015 Blood Pressure Diastolic 67 mmHg Blood Pressure Systolic 106 mmHg Results No Known Results Summary Purpose eClinicalWorks Submission
--- OUTSIDE RECORDS SUMMARY | 2018-07-05 12:48 | XMS REPORT ---
Author Author MELIA MARIN [facility] eClinicalWorks Address Unknown Phone Unavailable Care Team Providers Care Sulfur Chloride Operator Name Role Phone MELIA MARIN Unavailable Allergies [...]
--- OUTSIDE RECORDS SUMMARY | 2018-07-05 12:48 | XMS REPORT ---
Author MELIA Fraser eClinicalWorks Address Unknown Phone Unavailable Care Team Providers Care Aircraft Detail Draftsperson Name Role Phone MELIA MARIN CP Unavailable Allergies, Adverse Reactions, Alerts Substance Reaction Event Type N.K.D.A. Info Not Available Non Drug Allergy Problems Problem Type Condition ICD-9 Code Onset Dates Condition Status Assessment Asthma 493.90 Active Problem Prediabetes 790.29 Active Assessment Chronic kidney disease 585.9 Active Problem Asthma 493.90 Active Problem Shortness of breath 786.05 Active Problem Chronic kidney disease 585.9 Active Problem Lumbosacral radiculopathy at S1 724.4 Active Problem Vitamin D deficiency 268.9 Active Problem Fibromyalgia 729.1 Active Problem Carpal tunnel syndrome on right 354.0 Active Medications Medication Code System Code Instructions Start Date End Date Status Dosage Phentermine HCl [facility] [address]-18 37.5 MG Orally Once a day 1 tablet Vitamin D2 [facility] 68318-[address]36 50,000 unit Nov 08, 2014 take 1 capsule (50,000 unit) by oral route once weekly for 12 weeks Proventil HFA [facility] [address]-80 108 (90 Base) MCG/ACT Inhalation every 4 hrs May 24, 2015 2 puffs as needed Triamterene-HCTZ [facility] 19878731472 75-50 TAKE ONE TABLET BY MOUTH ONCE DAILY Vitamin B-12 [facility] [address]-68 1000 MCG Orally Once a day 1 tablet Naproxen [facility] [address]-01 500 MG Orally every 12 hrs 1 tablet as needed Estradiol [facility] 27507849726 1MG take 1 tablet by Oral route 1 time per day Procedures Procedure Coding System Code Date URINALYSIS, AUTO W/SCOPE CPT-4 02815 May 24, 2015 ASSAY OF PROTEIN, URINE CPT-4 12652 May 24, 2015 BASIC METABOLIC PANEL CPT-4 63303 May 24, 2015 Office Visit, Est Pt., Level 3 CPT-4 28017 May 24, 2015 ASSAY OF URINE CREATININE CPT-4 53421 May 24, 2015 VENIPUNCT, ROUTINE* CPT-4 94192 May 24, 2015 Vital Signs Date/Time: May 24, 2015 Temperature 97.4 F Weight 168.5 lbs Height 64 in BMI 28.92 Index Blood Pressure Diastolic 76 mmHg Blood Pressure Systolic 138 mmHg Cardiac Monitoring Heart Rate 120 bpm Results Name Result Date Reference Range Unit Abnormality Flag ROUTINE VENIPUNCTURE Summary Purpose eClinicalWorks Submission
--- OUTSIDE RECORDS SUMMARY | 2018-07-05 12:48 | XMS REPORT ---
Author Author MELIA MARIN eClinicalWorks Address Unknown Phone Unavailable Care Team Providers Care Correctional Medicine Physician Name Role Phone MELIA MARIN CP Unavailable Allergies, Adverse Reactions, Alerts Substance Reaction Event Type Sulfacetamide Sodium Info Not Available Drug Allergy Codeine Sulfate Info Not Available Drug Allergy Problems Problem Type Condition Code Onset Dates Condition Status Assessment Screening, lipid Z13.220 Active Assessment Thrombocytosis D47.3 Active Problem Chronic kidney disease, stage I N18.1 Active Assessment Vitamin D deficiency E55.9 Active Problem Lower abdominal tenderness R10.819 Active Assessment Prediabetes R73.09 Active Problem Other constipation K59.09 Active Problem Breast tenderness N64.4 Active Problem Dense breast tissue R92.2 Active Problem Nipple discharge N64.52 Active Problem History of hysterectomy Z90.710 Active Assessment Duct ectasia, 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 Assessment Nipple discharge N64.52 Active Problem Encounter for dental examination Z01.20 Active Assessment Itching L29.9 Active Problem Stress F43.9 Active Problem Hormone [...] Problem Shortness of breath R06.02 Active Problem Mild intermittent asthma without complication J45.20 Active Medications Medication Code System Code Instructions Start Date End Date Status Dosage Potassium Chloride ER [facility] [address]-45 20 MEQ Orally Once a day Nov 21, 2015 February 19, 2016 1 tablet with food Estradiol [facility] [address]-12 1 MG Orally Once a day Oct 15, 2015 1 tablet Vitamin D (Cholecalciferol) [facility] [address]-46 1000 UNIT Orally Once a day 1 tablet Triamterene-HCTZ [facility] 19987000845 75-50MG Orally Once a day 1 tablet in the morning Ventolin HFA [facility] [address]-47 108 (90 Base) MCG/ACT Inhalation every 4 hrs May 24, 2015 2 puffs as needed Vitamin B-12 [facility] [address]-07 1000 MCG Orally Once a day 1 tablet Phentermine HCl [facility] [address]-52 37.5 MG Orally Once a day 1 tablet HydrOXYzine HCl [facility] [address]-57 25 MG Orally every 8 hrs January 23, 2016 1 tablet as needed for itching Procedures Procedure Coding System Code Date ASSAY OF VITAMIN D CPT-4 19587 January 23, 2016 COMPLETE CBC W/AUTO DIFF WBC CPT-4 10383 January 23, 2016 COMPREHEN METABOLIC PANEL CPT-4 43549 January 23, 2016 Office Visit, Est Pt., Level 3 CPT-4 88217 January 23, 2016 LIPID PANEL CPT-4 38646 January 23, 2016 VENIPUNCT, ROUTINE* CPT-4 63218 January 23, 2016 Vital Signs Date/Time: January 23, 2016 Temperature 98.7 F Weight 180.2 lbs Height 64 in BMI 30.93 Index Blood Pressure Diastolic 84 mmHg Blood Pressure Systolic 133 mmHg Cardiac Monitoring Heart Rate 88 bpm Results Name Result Date Reference Range Unit Abnormality Flag VITAMIN D, 25-H ----Vitamin D, 25-Hydroxy 41.7 25793939 30.0-100.0 ng/mL LIPID PANEL ----LDL Cholesterol Calc 104 70784119 0-99 mg/dL H ----VLDL Cholesterol Jose 20 90110860 5-40 mg/dL ----Cholesterol, Total 185 22825151 100-199 mg/dL ----HDL Cholesterol 61 99799238 >39 mg/dL ----Triglycerides 102 78203631 0-149 mg/dL ROUTINE VENIPUNCTURE CBC ----MCHC 32.2 57668547 31.5-35.7 g/dL ----MCH 30.8 97200326 26.6-33.0 pg ----Platelets 394 46944684 150-379 x10E3/uL H ----RDW 13.8 96861636 12.3-15.4 % ----Immature Granulocytes 0 01075643 % ----Immature Grans (Abs) 0.0 25965172 0.0-0.1 x10E3/uL ----Lymphs 31 48253351 % ----Monocytes 5 66884496 % ----Neutrophils 63 84215925 % ----Neutrophils (Absolute) 5.2 09955850 1.4-7.0 x10E3/uL ----Hematocrit 47.5 03706977 34.0-46.6 % H ----Lymphs (Absolute) 2.6 68389949 0.7-3.1 x10E3/uL ----MCV 96 28402068 79-97 fL ----RBC 4.96 24805364 3.77-5.28 x10E6/uL ----Eos 1 55895098 % ----Basos 0 64092544 % ----Hemoglobin 15.3 89679753 11.1-15.9 g/dL ----Baso (Absolute) 0.0 17555819 0.0-0.2 x10E3/uL ----WBC 8.3 38417162 3.4-10.8 x10E3/uL ----Monocytes(Absolute) 0.4 47442508 0.1-0.9 x10E3/uL ----Eos (Absolute) 0.1 98624617 0.0-0.4 x10E3/uL CMP ----Potassium, Serum 3.6 29112915 3.5-5.2 mmol/L ----Sodium, Serum 140 67894644 134-144 mmol/L ----BUN/Creatinine Ratio 18 20160123 9-23 ----eGFR If Africn Am 81 70120037 >59 mL/min/1.73 ----eGFR If NonAfricn Am 70 64917830 >59 mL/min/1.73 ----Creatinine, Serum 0.92 98118992 0.57-1.00 mg/dL ----BUN 17 82120990 6-24 mg/dL ----Glucose, Serum 100 48488248 65-99 mg/dL H ----AST (SGOT) 39 77980741 0-40 IU/L ----Globulin, Total 3.3 18579008 1.5-4.5 g/dL ----ALT (SGPT) 47 20160123 0-32 IU/L H ----A/G Ratio 1.4 20160123 1.1-2.5 ----Bilirubin, Total 0.4 20160123 0.0-1.2 mg/dL ----Alkaline Phosphatase, S 94 20160123 39-117 IU/L ----Carbon Dioxide, Total 25 20160123 18-29 mmol/L ----Calcium, Serum 10.2 20160123 8.7-10.2 mg/dL ----Protein, Total, Serum 8.0 20160123 6.0-8.5 g/dL ----Albumin, Serum 4.7 20160123 3.5-5.5 g/dL ----Chloride, Serum 97 20160123 97-108 mmol/L Summary Purpose eClinicalWorks Submission
--- OUTSIDE RECORDS SUMMARY | 2018-07-05 12:48 | XMS REPORT ---
Author Author MELIA MARIN [facility] eClinicalWorks Address Unknown Phone Unavailable Care Team Providers Care Environmental Officer Name Role Phone MELIA MARIN Unavailable Allergies No Known Allergies Problems Problem Type Condition Code Onset Dates Condition Status Problem Lumbosacral radiculopathy M54.17 Active Problem Vitamin [...] Instructions Start Date End Date Status Dosage Estradiol [facility] [address]-47 1 MG Orally Once a day Oct 15, 2015 1 tablet Results No Known Results Summary Purpose eClinicalWorks Submission
--- OUTSIDE RECORDS SUMMARY | 2018-07-05 12:48 | XMS REPORT ---
Author Author MELIA MARIN [facility] eClinicalWorks Address Unknown Phone Unavailable Care Team Providers Care Business Analyst Name Role Phone MELIA MARIN CP Unavailable Allergies No Known Allergies Problems Problem Type Condition Code Onset Dates Condition Status Problem Other constipation K59.09 Active Problem Breast tenderness N64.4 Active Problem Dense breast tissue R92.2 Active Problem Nipple discharge N64.52 Active Assessment Thrombocytosis D47.3 Active Problem History of hysterectomy Z90.710 Active Assessment Itching L29.9 Active Problem Encounter for dental examination Z01.20 [...] Problem Lower abdominal tenderness R10.819 Active Medications No Known Medications Results No Known Results Summary Purpose eClinicalWorks Submission
--- OUTSIDE RECORDS SUMMARY | 2018-07-05 12:48 | XMS REPORT ---
Author Author MELIA MARIN [facility] eClinicalWorks Address Unknown Phone Unavailable Care Team Providers Care Director Of [facility] Name Role Phone MELIA MARIN Unavailable Allergies [...] Problem Shortness of breath R06.02 Active Medications No Known Medications Results No Known Results Summary Purpose eClinicalWorks Submission
--- OUTSIDE RECORDS SUMMARY | 2018-07-05 12:48 | XMS REPORT ---
Author Author MELIA MARIN [facility] eClinicalWorks Address Unknown Phone Unavailable Care Team Providers Care Leisure Studies Professor Name Role Phone MELIA MARIN CP Unavailable Allergies No Known Allergies Problems Problem Type Condition Code Onset Dates Condition Status Problem Other constipation K59.09 Active Problem Breast tenderness N64.4 Active Problem Dense breast tissue R92.2 Active Problem Nipple discharge N64.52 Active Assessment Chronic kidney disease, stage I N18.1 Active Problem History of hysterectomy Z90.710 Active [...] End Date Status Dosage Potassium Chloride ER [facility] [address]-69 20 MEQ Orally Once a day Nov 09, 2015 Nov 16, 2015 1 tablet with food Results No Known Results Summary Purpose eClinicalWorks Submission
--- OUTSIDE RECORDS SUMMARY | 2018-07-05 12:48 | XMS REPORT ---
Author Author MELIA MARIN [facility] eClinicalWorks Address Unknown Phone Unavailable Care Team Providers Care Upset Operator Name Role Phone MELIA MARIN CP [...]
--- OUTSIDE RECORDS SUMMARY | 2018-07-05 12:49 | XMS REPORT ---
Author Author HAYDE SINGLETON [facility] eClinicalWorks Address Unknown Phone Unavailable Care Team Providers Care Band Aid Machine Operator Name Role Phone HAYDE SINGLETON Unavailable Allergies, Adverse Reactions, Alerts Substance Reaction Event Type Sulfacetamide Sodium Info Not Available Drug Allergy Codeine Sulfate Info Not Available Drug Allergy Problems Problem Type Condition Code Onset Dates Condition Status Assessment Dense breast tissue R92.2 Active Assessment Other constipation K59.09 Active Assessment Hormone replacement therapy Z79.890 Active Assessment Breast tenderness N64.4 Active Assessment Screening for malignant neoplasm of colon Z12.11 Active Assessment Screening for malignant neoplasm of breast Z12.39 Active Assessment Stress F43.9 Active Assessment Lack of family support Z63.8 Active Assessment Depression, unspecified depression type F32.9 Active Problem Menopausal and perimenopausal disorder N95.9 Active Assessment Other fatigue R53.83 Active Problem Chronic kidney disease, stage I N18.1 Active Assessment Fibromyalgia M79.7 Active Problem Lower abdominal tenderness R10.819 Active Problem Dense breast tissue R92.2 Active Problem Other constipation K59.09 Active Problem History of hysterectomy Z90.710 Active Problem Left knee pain M25.562 Active Assessment Nipple discharge N64.52 Active Assessment History of hysterectomy Z90.710 Active Problem Nipple discharge N64.52 Active Assessment Left knee pain M25.562 Active Problem Hormone replacement therapy Z79.890 Active Problem Breast tenderness N64.4 Active Problem Depression, unspecified depression type F32.9 Active Problem Stress F43.9 Active Problem Lumbosacral radiculopathy M54.17 Active Assessment Lower abdominal tenderness R10.819 Active Problem Carpal tunnel syndrome, unspecified laterality G56.00 Active Assessment Well woman exam Z01.419 Active Problem Vitamin D deficiency E55.9 Active Problem Mild intermittent asthma without complication J45.20 Active Problem Prediabetes R73.09 Active Problem Fibromyalgia M79.7 Active Problem Shortness of breath R06.02 Active Medications Medication Code System Code Instructions Start Date End Date Status Dosage Vitamin B-12 [facility] [address]-53 1000 MCG Orally Once a day 1 tablet Amitriptyline HCl [facility] [address]-96 10 MG Orally Once a day at bedtime, increase to 2 tabs after 1 week and 3 tabs after 2 weeks, call for further increase if needed Nov 06, 2015 1 tablet Ventolin HFA [facility] [address]-51 108 (90 Base) MCG/ACT Inhalation every 4 hrs May 24, 2015 2 puffs as needed Estradiol [facility] [address]-56 1 MG Orally Once a day Oct 15, 2015 1 tablet Triamterene-HCTZ [facility] 96463336953 75-50MG Orally Once a day 1 tablet in the morning Vitamin D (Cholecalciferol) [facility] [address]-85 1000 UNIT Orally Once a day 1 tablet Procedures Procedure Coding System Code Date CULTURE BACTERIA ANAEROBIC CPT-4 01680 Nov 06, 2015 CULTURE, BACTERIA, OTHER CPT-4 01692 Nov 06, 2015 ASSAY OF PROLACTIN CPT-4 23672 Nov 06, 2015 Office Visit, Est Pt., Level 3 CPT-4 33905 Nov 06, 2015 Vital Signs Date/Time: Nov 06, 2015 Temperature 98.8 F Weight 176.4 lbs Height 64 in BMI 30.28 Index Blood Pressure Diastolic 74 mmHg Blood Pressure Systolic 126 mmHg Cardiac Monitoring Heart Rate 96 bpm Results Name Result Date Reference Range Unit Abnormality Flag BMP ----Chloride, Serum 96 20151106 97-108 mmol/L L ----Potassium, Serum 3.4 20151106 3.5-5.2 mmol/L L ----Sodium, Serum 139 20151106 134-144 mmol/L ----BUN/Creatinine Ratio 15 20151106 9-23 ----eGFR If Africn Am 81 20151106 >59 mL/min/1.73 ----Calcium, Serum 9.3 20151106 8.7-10.2 mg/dL ----Glucose, Serum 103 20151106 65-99 mg/dL H ----Carbon Dioxide, Total 26 20151106 18-29 mmol/L ----BUN 14 20151106 6-24 mg/dL ----Creatinine, Serum 0.92 20151106 0.57-1.00 mg/dL ----eGFR If NonAfricn Am 70 [id number] >59 mL/min/1.73 Summary Purpose eClinicalWorks Submission
--- OUTSIDE RECORDS SUMMARY | 2018-07-05 12:49 | XMS REPORT ---
Author Author MELIA MARIN [facility] eClinicalWorks Address Unknown Phone Unavailable Care Team Providers Care Application Performance Engineer Name Role Phone MELIA MARIN CP Unavailable Allergies No Known Allergies Problems Problem Type Condition Code Onset Dates Condition Status Assessment Chronic kidney disease, stage I N18.1 Active Problem Lumbosacral radiculopathy M54.17 Active Problem [...]
--- OUTSIDE RECORDS SUMMARY | 2018-07-05 12:49 | XMS REPORT ---
Author Author MELIA MARIN [facility] eClinicalWorks Address Unknown Phone Unavailable Care Team Providers Care Sleeve Maker Name Role Phone MELIA MARIN CP Unavailable [...] tunnel syndrome on right 354.0 Active Medications No Known Medications Results No Known Results Summary Purpose eClinicalWorks Submission
--- OUTSIDE RECORDS SUMMARY | 2018-07-05 12:49 | XMS REPORT ---
Author Author MELIA MARIN [facility] eClinicalWorks Address Unknown Phone Unavailable Care Team Providers Care Truck Rental Manager Name Role Phone MELIA MARIN CP [...]
--- OUTSIDE RECORDS SUMMARY | 2018-07-05 12:49 | XMS REPORT ---
Author Author MELIA MARIN [facility] eClinicalWorks Address Unknown Phone Unavailable Care Team Providers Care Outpatient Receptionist Name Role Phone MELIA MARIN CP Unavailable [...]
--- OUTSIDE RECORDS SUMMARY | 2018-07-05 12:49 | XMS REPORT ---
Author Author MELIA MARIN [facility] eClinicalWorks Address Unknown Phone Unavailable Care Team Providers Care Sap Sd Analyst Name Role Phone MELIA MARIN CP [...] Date End Date Status Dosage Ventolin HFA [facility] [address]-48 108 (90 Base) MCG/ACT Inhalation every 4 hrs May 24, 2015 2 puffs as needed Results No Known Results Summary Purpose eClinicalWorks Submission
--- OUTSIDE RECORDS SUMMARY | 2018-07-05 12:51 | XMS REPORT | Continuity of Care Document ---
Author Author [facility] Address Unknown Phone Unavailable Allergies Active Description Code Type Severity Reaction Onset Reported/Identified Relationship to Patient Clinical Status Yes HYDROCODONE-ACETAMINOPHEN MILD GI PROBLEMS - NAUSEA Yes LATEX MILD ITCHING Yes NO KNOWN DRUG ALLERGIES UNKNOWN NO KNOWN DRUG ALLERG Yes No Known Drug Allergies [id number] Drug Allergy Unknown N/A 06/03/2016 Medications Medication Packaging Start Date Stop Date Route Dosage Sig LACTATED RINGERS 1000CC IV BAG INJ ml 09/29/2017 10/06/2017 CONTINUOUSEVERY 0 Hour CEFAZOLIN VIAL INJ 1 GM (ANCEF) GM 10/01/2017 10/01/2017 ONCE&0902 FENTANYL INJ 100 MCG/2CC VIAL MCG 10/01/2017 10/01/2017 ONCE&1017 MEPERIDINE SYRINGE INJ 25 MG/CC (DEMEROL SYRINGE) MG 10/01/2017 10/01/2017 ONCE&1106 Problems Date Dx Coded Attending Type Code Diagnosis Diagnosed By 07/28/2011 MELIA MARIN MD 611.72 BREAST LUMP OR MASS 07/28/2011 MELIA MARIN MD 611.72 BREAST LUMP OR MASS 07/28/2011 TOMMY REBOLLEDO APRN 611.72 BREAST LUMP OR MASS 08/13/2011 MELIA MARIN MD V72.31 LOGISTICS DIRECTOR EXAM, ROUTINE 08/13/2011 MELIA MARIN MD V76.10 BREAST CANCER SCREENING 08/13/2011 MELIA MARIN MD V72.31 LOGISTICS DIRECTOR EXAM, ROUTINE 08/13/2011 MELIA MARIN MD V76.10 BREAST CANCER SCREENING 08/13/2011 TOMMY REBOLLEDO APRN V72.31 LOGISTICS DIRECTOR EXAM, ROUTINE 08/13/2011 TOMMY REBOLLEDO APRN V76.10 BREAST CANCER SCREENING 02/06/2012 Ot 729.5 02/23/2012 Ot 729.81 02/23/2012 Ot 782.3 02/15/2013 JUVENCIO HOLCOMB DO Ot 564.00 UNSPEC CONSTIPATION 11/03/2014 MELIA MARIN MD N 703.8 OTHER SPECIFIED DISEASES OF NAIL 11/03/2014 MELIA MARIN MD N 704.00 ALOPECIA UNSPECIFIED 11/03/2014 MELIA MARIN MD N 719.45 PAIN IN JOINT INVOLVING PELVIC REGION AND THIGH 11/03/2014 MELIA MARIN MD N 780.79 OTHER MALAISE AND FATIGUE 11/03/2014 MELIA MARIN MD N 780.8 GENERALIZED HYPERHIDROSIS 11/03/2014 MELIA MARIN MD N 703.8 OTHER SPECIFIED DISEASES OF NAIL 11/03/2014 MELIA MARIN MD N 704.00 ALOPECIA UNSPECIFIED 11/03/2014 MELIA MARIN MD N 719.45 PAIN IN JOINT INVOLVING PELVIC REGION AND THIGH 11/03/2014 MELIA MARIN MD N 780.79 OTHER MALAISE AND FATIGUE 11/03/2014 MELIA MARIN MD N 780.8 GENERALIZED HYPERHIDROSIS 11/03/2014 TOMMY REBOLLEDO APRN 703.8 OTHER SPECIFIED DISEASES OF NAIL 11/03/2014 TOMMY REBOLLEDO APRN 704.00 ALOPECIA UNSPECIFIED 11/03/2014 TOMMY REBOLLEDO APRN 719.45 PAIN IN JOINT INVOLVING PELVIC REGION AND THIGH 11/03/2014 TOMMY REBOLLEDO APRN 780.79 OTHER MALAISE AND FATIGUE 11/03/2014 TOMMY REBOLLEDO APRN 780.8 GENERALIZED HYPERHIDROSIS 11/14/2014 TOMMY REBOLLEDO APRN 611.6 GALACTORRHEA NOT ASSOCIATED WITH CHILDBIRTH 11/14/2014 TOMMY REBOLLEDO APRN 611.71 MASTODYNIA 11/14/2014 TOMMY REBOLLEDO APRN V72.31 LOGISTICS DIRECTOR EXAM, ROUTINE 11/14/2014 TOMMY REBOLLEDO APRN V76.10 BREAST CANCER SCREENING 11/14/2014 TOMMY REBOLLEDO APRN V76.51 COLON CANCER SCREENING 11/22/2014 Ot 611.72 11/22/2014 Ot 793.80 11/22/2014 RIDRON BOYD PRODUCTION PATTERN MAKER Ot 789.00 12/26/2014 Ot 611.72 12/26/2014 Ot 793.80 12/26/2014 RIDRON BOYD PRODUCTION PATTERN MAKER Ot 789.00 12/26/2014 Ot 611.6 12/26/2014 Ot 611.71 12/27/2014 POOL HICKS, BETH Davis Ot 719.40 JOINT PAIN-UNSPEC 12/27/2014 POOL HICKS, BETH Davis Ot 729.1 MYALGIA AND MYOSITIS NOS 12/27/2014 POOL HICKS, BETH Davis Ot 786.09 RESPIRATORY ABNORM NEC 12/27/2014 BETH LANZA MD Ot 786.50 CHEST PAIN NOS 12/27/2014 POOL HICKS, BETH Davis Ot 786.59 CHEST PAIN NEC 01/01/2015 Ot 611.72 01/01/2015 Ot 793.80 01/01/2015 RIDRON BOYD PRODUCTION PATTERN MAKER Ot 789.00 01/01/2015 Ot 611.6 01/01/2015 Ot 611.71 01/04/2015 ALVARO HOFFMAN Ot 785.0 01/04/2015 ALVARO HOFFMAN Ot 786.09 01/29/2015 Ot 611.72 01/29/2015 Ot 793.80 01/29/2015 RIDRON BOYD PRODUCTION PATTERN MAKER Ot 789.00 01/29/2015 Ot 611.6 01/29/2015 Ot 611.71 01/29/2015 FRANCESCO ZHANG MD Ot 401.9 01/29/2015 FRANCESCO ZHANG MD Ot 786.09 01/29/2015 FRANCESCO ZHANG MD Ot 786.50 01/29/2015 ALVARO HOFFMAN Ot 785.0 01/29/2015 ALVARO HOFFMAN Ot 786.09 02/08/2015 MELIA MARIN MD Ot 719.45 02/08/2015 MELIA MARIN MD Ot V57.1 02/27/2015 MELIA MARIN MD Ot 719.45 JOINT PAIN-PELVIS 02/27/2015 MELIA MARIN MD Ot V57.1 PHYSICAL THERAPY NEC 03/07/2015 Ot 611.72 03/07/2015 Ot 793.80 03/07/2015 RIDRON BOYD PRODUCTION PATTERN MAKER Ot 789.00 03/07/2015 Ot 611.6 03/07/2015 Ot 611.71 03/07/2015 FRANCESCO ZHANG MD Ot 401.9 03/07/2015 FRANCESCO ZHANG MD Ot 786.09 03/07/2015 FRANCESCO ZHANG MD Ot 786.50 03/07/2015 ALVARO HOFFMAN Ot 785.0 03/07/2015 ALVARO HOFFMAN Ot 786.09 05/07/2015 Ot 611.72 05/07/2015 Ot 793.80 05/07/2015 RIDOLIVERRON Kary PRODUCTION PATTERN MAKER Ot 789.00 05/07/2015 Ot 611.6 05/07/2015 Ot 611.71 05/07/2015 FRANCESCO ZHANG MD Ot 401.9 05/07/2015 FRANCESCO ZHANG MD Ot 786.09 05/07/2015 FRANCESCO ZHANG MD Ot 786.50 05/07/2015 ALVARO HOFFMAN Ot 785.0 05/07/2015 ALVARO HOFFMAN Ot 786.09 05/11/2015 HARRIET HICKS, BEN Mejia Ot 780.79 05/11/2015 HARRIET HICKS, BEN Mejia Ot 786.09 05/24/2015 HARRIET HICKS, BEN Mejia Ot 780.79 05/24/2015 HARRIET HICKS, BEN Mejia Ot 786.09 07/19/2015 HARRIET HICKS, BEN Mejia Ot 780.79 07/19/2015 HARRIET HICKS, BEN Mejia Ot 786.09 08/03/2015 SRIDEVI WOOTEN MD Ot N18.3 08/03/2015 SRIDEVI WOOTEN MD Ot R53.83 08/03/2015 Ot R06.02 08/03/2015 Ot R63.5 11/15/2015 HAYDE SINGLETON PRODUCTION PATTERN MAKER Ot N64.4 11/15/2015 HAYDE SINGLETON PRODUCTION PATTERN MAKER Ot N64.52 11/16/2015 HARRIET HICKS, BEN J Ot 780.79 11/16/2015 HARRIET HICKS, BEN Mejia Ot 786.09 11/16/2015 JE HICKS, TALAL A Ot N18.3 11/16/2015 SHASHI WOOTEN MDAL A Ot R53.83 11/16/2015 Ot R06.02 11/16/2015 Ot R63.5 11/16/2015 HARRIET HICKS, BEN Mejia Ot 780.79 11/16/2015 HARRIET HICKS, BEN Mejia Ot 786.09 11/16/2015 JE HICKS, SHASHIAL A Ot N18.3 11/16/2015 JE HICKS, SHASHIAL A Ot R53.83 11/16/2015 Ot R06.02 11/16/2015 Ot R63.5 11/16/2015 HAYDE SINGLETON A PRODUCTION PATTERN MAKER Ot N64.4 11/16/2015 ARELI HAYDE A PRODUCTION PATTERN MAKER Ot N64.52 11/16/2015 ARELI HAYDE A PRODUCTION PATTERN MAKER Ot N64.4 11/16/2015 ARELI HAYDE A PRODUCTION PATTERN MAKER Ot N64.52 02/01/2016 TANIA HICKS, MELIA N Ot N64.52 NIPPLE DISCHARGE 03/05/2016 LAM HICKS, DARIN A Ot N64.52 NIPPLE DISCHARGE 03/05/2016 LAM HICKS, DARIN A Ot R51 HEADACHE 03/05/2016 LAM HICKS, DARIN A Ot N64.52 NIPPLE DISCHARGE 03/05/2016 LAM HICKS, DARIN A Ot R51 HEADACHE 04/04/2016 WILIAM LOPEZ PRODUCTION PATTERN MAKER Ot H57.8 OTHER SPECIFIED DISORDERS OF EYE AND ADN 04/04/2016 WILIAM LOPEZ PRODUCTION PATTERN MAKER Ot 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 04/09/2016 WILIAM LOPEZ PRODUCTION PATTERN MAKER Ot H57.8 OTHER SPECIFIED DISORDERS OF EYE AND ADN 04/09/2016 WILIAM LOPEZ PRODUCTION PATTERN MAKER Ot 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 04/23/2016 WILIAM LOPEZ PRODUCTION PATTERN MAKER Ot H57.8 OTHER SPECIFIED DISORDERS OF EYE AND ADN 04/23/2016 WILIAM LOPEZ PRODUCTION PATTERN MAKER Ot 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 04/24/2016 WILIAM LOPEZ PRODUCTION PATTERN MAKER Ot H57.8 OTHER SPECIFIED DISORDERS OF EYE AND ADN 04/24/2016 WILIAM LOPEZ PRODUCTION PATTERN MAKER Ot 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 04/24/2016 HARRIET HICKS, BEN Mejia Ot 780.79 OTH MALAISE FATIGUE 04/24/2016 HARRIET HICKS, BEN Mejia Ot 786.09 RESPIRATORY ABNORM NEC 04/24/2016 JE HICKS, SRIDEVI Monteiro Ot N18.3 CHRONIC KIDNEY DISEASE, STAGE 3 (MODERAT 04/24/2016 JE HICKS, SRIDEVI Monteiro Ot R53.83 OTHER FATIGUE 04/24/2016 Ot R06.02 SHORTNESS OF BREATH 04/24/2016 Ot R63.5 ABNORMAL WEIGHT GAIN 04/24/2016 HAYDE SINGLETON PRODUCTION PATTERN MAKER Ot N64.4 MASTODYNIA 04/24/2016 HAYDE SINGLETON PRODUCTION PATTERN MAKER Ot N64.52 NIPPLE DISCHARGE 04/24/2016 MELIA MARIN MD Ot N64.52 NIPPLE DISCHARGE 04/24/2016 DARIN FRITZ MD Ot N64.52 NIPPLE DISCHARGE 04/24/2016 DARIN FRITZ MD Ot R51 HEADACHE 04/25/2016 UMESH LIM MD Ot K80.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 04/25/2016 UMESH LIM MD Ot I10 ESSENTIAL (PRIMARY) HYPERTENSION 04/25/2016 UMESH LIM MD Ot K80.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 04/25/2016 UMESH LIM MD Ot Z79.899 OTHER RESIDENTIAL (CURRENT) DRUG THERAPY 05/01/2016 UMESH LIM MD Ot I10 ESSENTIAL (PRIMARY) HYPERTENSION 05/01/2016 UMESH LIM MD Ot K80.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 05/01/2016 UMESH LIM MD Ot Z79.899 OTHER BODY COVERER (CURRENT) DRUG THERAPY 05/03/2016 UMESH LIM MD Ot I10 ESSENTIAL (PRIMARY) HYPERTENSION 05/03/2016 UMESH LIM MD Ot K80.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 05/03/2016 UMESH LIM MD Ot Z79.899 OTHER BODY COVERER (CURRENT) DRUG THERAPY 05/22/2016 HARRIET HICKS, BEN Mejia Ot 780.79 OTH MALAISE FATIGUE 05/22/2016 HARRIET HICKS, BEN Mejia Ot 786.09 RESPIRATORY ABNORM NEC 05/22/2016 SRIDEVI WOOTEN MD Ot N18.3 CHRONIC KIDNEY DISEASE, STAGE 3 (MODERAT 05/22/2016 SRIDEVI WOOTEN MD Ot R53.83 OTHER FATIGUE 05/22/2016 Ot R06.02 SHORTNESS OF BREATH 05/22/2016 Ot R63.5 ABNORMAL WEIGHT GAIN 05/22/2016 HAYDE SINGLETON PRODUCTION PATTERN MAKER Ot N64.4 MASTODYNIA 05/22/2016 HAYDE SINGLETON PRODUCTION PATTERN MAKER Ot N64.52 NIPPLE DISCHARGE 05/22/2016 TANIA HICKS, MELIA Ventura Ot N64.52 NIPPLE DISCHARGE 05/22/2016 LAM HICKS, DARIN Monteiro Ot N64.52 NIPPLE DISCHARGE 05/22/2016 LAM HICKS, DARIN Monteiro Ot R51 HEADACHE 05/22/2016 LAM HICKS, DARIN Monteiro Ot R07.89 OTHER CHEST PAIN 05/28/2016 UMESH LIM MD Ot I10 ESSENTIAL (PRIMARY) HYPERTENSION 05/28/2016 UMESH LIM MD Ot K80.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 05/28/2016 UMESH LIM MD Ot Z79.899 OTHER BODY COVERER (CURRENT) DRUG THERAPY 05/29/2016 UMESH LIM MD Ot I10 ESSENTIAL (PRIMARY) HYPERTENSION 05/29/2016 UMESH LIM MD Ot K80.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 05/29/2016 UMESH LIM MD Ot Z79.899 OTHER BODY COVERER (CURRENT) DRUG THERAPY 06/03/2016 UMESH LIM MD Ot R10.13 EPIGASTRIC PAIN 06/03/2016 UMESH LIM MD Ot Z01.818 ENCOUNTER FOR OTHER PREPROCEDURAL EXAMIN 06/06/2016 HARRIET HICKS, BEN Mejia Ot 780.79 OTH MALAISE FATIGUE 06/06/2016 BEN LARIOS MD Ot 786.09 RESPIRATORY ABNORM NEC 06/06/2016 SRIDEVI WOOTEN MD Ot N18.3 CHRONIC KIDNEY DISEASE, STAGE 3 (MODERAT 06/06/2016 JE HICKS, SRIDEVI A Ot R53.83 OTHER FATIGUE 06/06/2016 Ot R06.02 SHORTNESS OF BREATH 06/06/2016 Ot R63.5 ABNORMAL WEIGHT GAIN 06/06/2016 HAYDE SINGLETON PRODUCTION PATTERN MAKER Ot N64.4 MASTODYNIA 06/06/2016 HAYDE SINGLETON PRODUCTION PATTERN MAKER Ot N64.52 NIPPLE DISCHARGE 06/06/2016 TANIA HICKS, MELIA Ventura Ot N64.52 NIPPLE DISCHARGE 06/06/2016 DARIN FRITZ MD Ot N64.52 NIPPLE DISCHARGE 06/06/2016 DARIN FRITZ MD Ot R51 HEADACHE 06/06/2016 DARIN FRITZ MD Ot R07.89 OTHER CHEST PAIN 06/06/2016 UMESH LIM MD Ot R06.02 SHORTNESS OF BREATH 06/06/2016 UMESH LIM MD Ot R10.9 UNSPECIFIED ABDOMINAL PAIN 06/06/2016 UMESH LIM MD Ot K21.0 GASTRO-ESOPHAGEAL REFLUX DISEASE WITH ES 06/06/2016 UMESH LIM MD Ot K29.70 GASTRITIS, UNSPECIFIED, WITHOUT BLEEDING 06/06/2016 UMESH ILM MD Ot K44.9 DIAPHRAGMATIC HERNIA WITHOUT OBSTRUCTION 06/13/2016 UMESH LIM MD Ot K21.0 GASTRO-ESOPHAGEAL REFLUX DISEASE WITH ES 06/13/2016 UMESH LIM MD Ot K29.70 GASTRITIS, UNSPECIFIED, WITHOUT BLEEDING 06/13/2016 UMESH LIM MD Ot K44.9 DIAPHRAGMATIC HERNIA WITHOUT OBSTRUCTION 06/17/2016 UMESH LIM MD Ot R06.02 SHORTNESS OF BREATH 06/17/2016 UMESH LIM MD Ot R10.9 UNSPECIFIED ABDOMINAL PAIN 06/24/2016 SULEMAN HICKS FACC, ALI FACP CCDS Ot R06.09 OTHER FORMS OF DYSPNEA 06/24/2016 SULEMAN HICKS FACC, ALI FACP CCDS Ot R07.89 OTHER CHEST PAIN 06/24/2016 SULEMAN HICKS FACC, ALI FACP CCDS Ot R73.09 OTHER ABNORMAL GLUCOSE 06/24/2016 SULEMAN HICKS FACC, ALI FACP CCDS Ot Z79.899 OTHER RESIDENTIAL (CURRENT) DRUG THERAPY 06/26/2016 UMESH LIM MD Ot R06.02 SHORTNESS OF BREATH 06/26/2016 UMESH LIM MD Ot R10.9 UNSPECIFIED ABDOMINAL PAIN 07/01/2016 MONAE PHELPS GREY STOCK RECORDER Ot R10.31 RIGHT LOWER QUADRANT PAIN 07/01/2016 KATELYN MAY DO Ot E66.9 OBESITY, UNSPECIFIED 07/01/2016 KATELYN MAY DO Ot R06.09 OTHER FORMS OF DYSPNEA 07/01/2016 KATELYN MAY DO Ot R07.9 CHEST PAIN, UNSPECIFIED 07/03/2016 MONAE PHELPS GREY STOCK RECORDER Ot R10.31 RIGHT LOWER QUADRANT PAIN 07/04/2016 EWA ARREOLA APRN Ot R06.09 OTHER FORMS OF DYSPNEA 07/08/2016 KATELYN MAY DO Ot G47.33 OBSTRUCTIVE SLEEP APNEA (ADULT) (PEDIATR 07/15/2016 HARRIET HICKS, BEN Mejia Ot 780.79 OTH MALAISE FATIGUE 07/15/2016 HARRIET HICKS, BEN Mejia Ot 786.09 RESPIRATORY ABNORM NEC 07/15/2016 JE HICKS, SRIDEVI Monteiro Ot N18.3 CHRONIC KIDNEY DISEASE, STAGE 3 (MODERAT 07/15/2016 JE HICKS, SRIDEVI Monteiro Ot R53.83 OTHER FATIGUE 07/15/2016 Ot R06.02 SHORTNESS OF BREATH 07/15/2016 Ot R63.5 ABNORMAL WEIGHT GAIN 07/15/2016 HAYDE SINGLETON PRODUCTION PATTERN MAKER Ot N64.4 MASTODYNIA 07/15/2016 HAYDE SINGLETON APRN Ot N64.52 NIPPLE DISCHARGE 07/15/2016 TANIA HICKS, MELIA Ventura Ot N64.52 NIPPLE DISCHARGE 07/15/2016 LAM HICKS, DARIN Monteiro Ot N64.52 NIPPLE DISCHARGE 07/15/2016 LAM HICKS, DARIN Monteiro Ot R51 HEADACHE 07/15/2016 LAM HICKS, DARIN Monteiro Ot R07.89 OTHER CHEST PAIN 07/15/2016 UMESH LIM MD Ot R06.02 SHORTNESS OF BREATH 07/15/2016 UMESH LIM MD Ot R10.9 UNSPECIFIED ABDOMINAL PAIN 07/15/2016 KATELYN MAY DO Ot E66.9 OBESITY, UNSPECIFIED 07/15/2016 KATELYN MAY DO Ot R06.09 OTHER FORMS OF DYSPNEA 07/15/2016 KATELYN MAY DO Ot R07.9 CHEST PAIN, UNSPECIFIED 07/15/2016 MONAE PHELPS GREY STOCK RECORDER Ot R10.31 RIGHT LOWER QUADRANT PAIN 07/15/2016 EWA ARREOLA APRN Ot R06.09 OTHER FORMS OF DYSPNEA 07/15/2016 EWA ARREOLA APRN Ot R06.09 OTHER FORMS OF DYSPNEA 07/16/2016 EWA ARREOLA APRN Ot R06.02 SHORTNESS OF BREATH 07/16/2016 HARRIET HICKS, BEN Mejia Ot 780.79 OTH MALAISE FATIGUE 07/16/2016 HARRIET HICKS, BEN Mejia Ot 786.09 RESPIRATORY ABNORM NEC 07/16/2016 JE HICKS, SRIDEVI Monteiro Ot N18.3 CHRONIC KIDNEY DISEASE, STAGE 3 (MODERAT 07/16/2016 JE HICKS, SRIDEVI Monteiro Ot R53.83 OTHER FATIGUE 07/16/2016 Ot R06.02 SHORTNESS OF BREATH 07/16/2016 Ot R63.5 ABNORMAL WEIGHT GAIN 07/16/2016 HAYDE SINGLETON PRODUCTION PATTERN MAKER Ot N64.4 MASTODYNIA 07/16/2016 HAYDE SINGLETON PRODUCTION PATTERN MAKER Ot N64.52 NIPPLE DISCHARGE 07/16/2016 TANIA HICKS, MELIA Ventura Ot N64.52 NIPPLE DISCHARGE 07/16/2016 LAM HICKS, DARIN Monteiro Ot N64.52 NIPPLE DISCHARGE 07/16/2016 LAM HICKS, DARIN Monteiro Ot R51 HEADACHE 07/16/2016 LAM HICKS, DARIN Monteiro Ot R07.89 OTHER CHEST PAIN 07/16/2016 RAPHAEL HICKS, UMESH Ot R06.02 SHORTNESS OF BREATH 07/16/2016 RAPHAEL HICKS, UMESH Ot R10.9 UNSPECIFIED ABDOMINAL PAIN 07/16/2016 KATELYN MAY DO Ot E66.9 OBESITY, UNSPECIFIED 07/16/2016 KATELYN MAY DO Ot R06.09 OTHER FORMS OF DYSPNEA 07/16/2016 KATELYN MAY DO Ot R07.9 CHEST PAIN, UNSPECIFIED 07/16/2016 MONAE PHELPS GREY STOCK RECORDER Ot R10.31 RIGHT LOWER QUADRANT PAIN 07/16/2016 EWA ARREOLA APRN Ot R06.09 OTHER FORMS OF DYSPNEA 07/16/2016 EWA ARREOLA APRN Ot R06.09 OTHER FORMS OF DYSPNEA 07/16/2016 EWA ARREOLA APRN Ot R06.02 SHORTNESS OF BREATH 07/16/2016 SULEMAN HICKS FACC, ALI FACP CCDS Ot R06.09 OTHER FORMS OF DYSPNEA 07/16/2016 SULEMAN HICKS FACC, ALI FACP CCDS Ot R07.89 OTHER CHEST PAIN 07/16/2016 SULEMAN HICKS FACC, ALI FACP CCDS Ot R73.09 OTHER ABNORMAL GLUCOSE 07/16/2016 SULEMAN HICKS FACC, ALI FACP CCDS Ot Z79.899 OTHER BODY COVERER (CURRENT) DRUG THERAPY 07/24/2016 DEBORAH HICKS, Debora WALKER Ot R06.09 OTHER FORMS OF DYSPNEA 07/24/2016 Debora CABRERA MD Ot R07.9 CHEST PAIN, UNSPECIFIED 07/24/2016 Debora CABRERA MD Ot R06.09 OTHER FORMS OF DYSPNEA 07/24/2016 Debora CABRERA MD Ot R07.9 CHEST PAIN, UNSPECIFIED 07/29/2016 EWA ARREOLA APRN Ot G47.33 OBSTRUCTIVE SLEEP APNEA (ADULT) (PEDIATR 07/29/2016 EWA ARREOLA APRN Ot R06.02 SHORTNESS OF BREATH 07/29/2016 EWA ARREOLA APRN Ot R06.09 OTHER FORMS OF DYSPNEA 09/16/2016 DANK HERNDON MD Ot R06.09 OTHER FORMS OF DYSPNEA 09/16/2016 DANK HERNDON MD Ot R53.82 CHRONIC FATIGUE, UNSPECIFIED 09/16/2016 DANK HERNDON MD Ot R06.09 OTHER FORMS OF DYSPNEA 09/16/2016 DANK HERNDON MD Ot R53.82 CHRONIC FATIGUE, UNSPECIFIED 10/21/2016 Debora CABRERA MD Ot R06.09 OTHER FORMS OF DYSPNEA 10/21/2016 Debora CABRERA MD Ot R07.9 CHEST PAIN, UNSPECIFIED 10/22/2016 Debora CABRERA MD Ot R06.09 OTHER FORMS OF DYSPNEA 10/22/2016 Debora CABRERA MDWAN Ot R07.9 CHEST PAIN, UNSPECIFIED 08/19/2017 RON ISAAC GREY STOCK RECORDER Ot N64.52 NIPPLE DISCHARGE 10/01/2017 MILENA MARLEY 715.16 OSTEOARTHROSIS, LOCALIZED, PRIMARY, INVOLVING LOWER LEG 10/01/2017 MILENA MARLEY 717.3 OTHER AND UNSPECIFIED DERANGEMENT OF MEDIAL MENISCUS 10/01/2017 MILENA MARLEY 727.05 OTHER TENOSYNOVITIS OR HAND AND WRIST 10/01/2017 MILENA MARLEY 836.1 TEAR OF LATERAL CARTILAGE OR MENISCUS OF KNEE, CURRENT 10/01/2017 DONELLMILENA JURADO M17.12 UNILATERAL PRIMARY OSTEOARTHRITIS, LEFT KNEE 10/01/2017 DONELL, MILENA Crocker M23.203 DERANG OF UNSP MEDIAL MENISCUS DUE TO OLD TEAR/INJ, R KNEE 10/01/2017 DONELL, MILENA Crocker M65.9 SYNOVITIS AND TENOSYNOVITIS, UNSPECIFIED 10/01/2017 MILENA MARLEY S83.281A OTH TEAR OF LAT MENSC, CURRENT INJURY, RIGHT KNEE, INIT 01/04/2018 HARRITE HICKS, BEN Mejia Ot 780.79 OTH MALAISE FATIGUE 01/04/2018 HARRIET HICKS, BEN J Ot 786.09 RESPIRATORY ABNORM NEC 01/04/2018 JE HICKS, SRIDEVI Monteiro Ot N18.3 CHRONIC KIDNEY DISEASE, STAGE 3 (MODERAT 01/04/2018 JE HICKS, SRIDEVI Monteiro Ot R53.83 OTHER FATIGUE 01/04/2018 Ot R06.02 SHORTNESS OF BREATH 01/04/2018 Ot R63.5 ABNORMAL WEIGHT GAIN 01/04/2018 HAYDE SINGLETON PRODUCTION PATTERN MAKER Ot N64.4 MASTODYNIA 01/04/2018 HAYDE SINGLETON PRODUCTION PATTERN MAKER Ot N64.52 NIPPLE DISCHARGE 01/04/2018 TANIA HICKS, MELIA Ventura Ot N64.52 NIPPLE DISCHARGE 01/04/2018 LAM HICKS, DARIN Monteiro Ot N64.52 NIPPLE DISCHARGE 01/04/2018 LAM HICKS, DARIN Monteiro Ot R51 HEADACHE 01/04/2018 LAM HICKS, DARIN Monteiro Ot R07.89 OTHER CHEST PAIN 01/04/2018 UMESH LIM MD Ot R06.02 SHORTNESS OF BREATH 01/04/2018 RAPHAEL HICKS, UMESH Ot R10.9 UNSPECIFIED ABDOMINAL PAIN 01/04/2018 LALO ROJAS KATELYN M Ot E66.9 OBESITY, UNSPECIFIED 01/04/2018 LALO ROJAS KATELYN Debora Ot R06.09 OTHER FORMS OF DYSPNEA 01/04/2018 LALO ROJAS KATELYN Debora Ot R07.9 CHEST PAIN, UNSPECIFIED 01/04/2018 MONAE PHELPS Ot R10.31 RIGHT LOWER QUADRANT PAIN 01/04/2018 MAXWELLEWA JORDAN PRODUCTION PATTERN MAKER Ot R06.09 OTHER FORMS OF DYSPNEA 01/04/2018 MAXWELLEWA JORDAN PRODUCTION PATTERN MAKER Ot R06.09 OTHER FORMS OF DYSPNEA 01/04/2018 MAXWELLEWA JORDAN PRODUCTION PATTERN MAKER Ot R06.02 SHORTNESS OF BREATH 01/04/2018 EWA ARREOLA PRODUCTION PATTERN MAKER Ot G47.33 OBSTRUCTIVE SLEEP APNEA (ADULT) (PEDIATR 01/04/2018 MAXWELLEWA JORDAN PRODUCTION PATTERN MAKER Ot R06.02 SHORTNESS OF BREATH 01/04/2018 EWA ARREOLA PRODUCTION PATTERN MAKER Ot R06.09 OTHER FORMS OF DYSPNEA 01/04/2018 DANK HERNDON MD Ot R06.09 OTHER FORMS OF DYSPNEA 01/04/2018 DANK HERNDON MD Ot R53.82 CHRONIC FATIGUE, UNSPECIFIED 01/04/2018 DEBORAH HICKS, Debora WALKER Ot R06.09 OTHER FORMS OF DYSPNEA 01/04/2018 DEBORAH HICKS, Debora WALKER Ot R07.9 CHEST PAIN, UNSPECIFIED 01/04/2018 RON ISAAC Ot N64.52 NIPPLE DISCHARGE 01/06/2018 SANDRA ISAAC DO Ot R07.9 CHEST PAIN, UNSPECIFIED 01/15/2018 HARRIET HICKS, BEN Mejia Ot 780.79 OTH MALAISE FATIGUE 01/15/2018 HARRIET HICKS, BEN Mejia Ot 786.09 RESPIRATORY ABNORM NEC 01/15/2018 JE HICKS, SRIDEVI Mnoteiro Ot N18.3 CHRONIC KIDNEY DISEASE, STAGE 3 (MODERAT 01/15/2018 SRIDEVI WOOTEN MD Ot R53.83 OTHER FATIGUE 01/15/2018 Ot R06.02 SHORTNESS OF BREATH 01/15/2018 Ot R63.5 ABNORMAL WEIGHT GAIN 01/15/2018 HAYDE SINGLETON PRODUCTION PATTERN MAKER Ot N64.4 MASTODYNIA 01/15/2018 HAYDE SINGLETON PRODUCTION PATTERN MAKER Ot N64.52 NIPPLE DISCHARGE 01/15/2018 TANIA HICKS, MELIA Ventura Ot N64.52 NIPPLE DISCHARGE 01/15/2018 LAM HICKS, DARIN Monteiro Ot N64.52 NIPPLE DISCHARGE 01/15/2018 LAM HICKS, DARIN Monteiro Ot R51 HEADACHE 01/15/2018 LAM HICKS, DARIN Monteiro Ot R07.89 OTHER CHEST PAIN 01/15/2018 RAPHAEL HICKS, UMESH Ot R06.02 SHORTNESS OF BREATH 01/15/2018 RAPHAEL HICKS, UMESH Ot R10.9 UNSPECIFIED ABDOMINAL PAIN 01/15/2018 KATELYN MAY DO Ot E66.9 OBESITY, UNSPECIFIED 01/15/2018 KATELYN MAY DO Ot R06.09 OTHER FORMS OF DYSPNEA 01/15/2018 KATELYN MAY DO Ot R07.9 CHEST PAIN, UNSPECIFIED 01/15/2018 MONAE PHELPS GREY STOCK RECORDER Ot R10.31 RIGHT LOWER QUADRANT PAIN 01/15/2018 EWA ARREOLA PRODUCTION PATTERN MAKER Ot R06.09 OTHER FORMS OF DYSPNEA 01/15/2018 EWA ARREOLA PRODUCTION PATTERN MAKER Ot R06.09 OTHER FORMS OF DYSPNEA 01/15/2018 EWA ARREOLA PRODUCTION PATTERN MAKER Ot R06.02 SHORTNESS OF BREATH 01/15/2018 EWA ARREOLA PRODUCTION PATTERN MAKER Ot G47.33 OBSTRUCTIVE SLEEP APNEA (ADULT) (PEDIATR 01/15/2018 EWA ARREOLA PRODUCTION PATTERN MAKER Ot R06.02 SHORTNESS OF BREATH 01/15/2018 EWA ARREOLA PRODUCTION PATTERN MAKER Ot R06.09 OTHER FORMS OF DYSPNEA 01/15/2018 YANICK HICKS, DANK Ot R06.09 OTHER FORMS OF DYSPNEA 01/15/2018 YANICK HICKS, DANK Ot R53.82 CHRONIC FATIGUE, UNSPECIFIED 01/15/2018 DEBORAH HICKS, Debora WALKER Ot R06.09 OTHER FORMS OF DYSPNEA 01/15/2018 DEBORAH HICKS, Debora WALKER Ot R07.9 CHEST PAIN, UNSPECIFIED 01/15/2018 RON ISAAC GREY STOCK RECORDER Ot N64.52 NIPPLE DISCHARGE 01/15/2018 SANDRA ISAAC DO Ot R07.9 CHEST PAIN, UNSPECIFIED 01/19/2018 HRARIET HICKS, BEN Mejia Ot 780.79 OTH MALAISE FATIGUE 01/19/2018 HARRIET HICKS, BEN Mejia Ot 786.09 RESPIRATORY ABNORM NEC 01/19/2018 JE HICKS, SRIDEVI Monteiro Ot N18.3 CHRONIC KIDNEY DISEASE, STAGE 3 (MODERAT 01/19/2018 JE HICKS, SRIDEVI Monteiro Ot R53.83 OTHER FATIGUE 01/19/2018 Ot R06.02 SHORTNESS OF BREATH 01/19/2018 Ot R63.5 ABNORMAL WEIGHT GAIN 01/19/2018 HAYDE SINGLETON PRODUCTION PATTERN MAKER Ot N64.4 MASTODYNIA 01/19/2018 HAYDE SINGLETON PRODUCTION PATTERN MAKER Ot N64.52 NIPPLE DISCHARGE 01/19/2018 TANAI HICKS, MELIA Ventura Ot N64.52 NIPPLE DISCHARGE 01/19/2018 LAM HICKS, DARIN Monteiro Ot N64.52 NIPPLE DISCHARGE 01/19/2018 LAM HICKS, DARIN Monteiro Ot R51 HEADACHE 01/19/2018 LAM HICKS, DARIN Monteiro Ot R07.89 OTHER CHEST PAIN 01/19/2018 RAPHAEL HICKS, UMESH Ot R06.02 SHORTNESS OF BREATH 01/19/2018 RAPHAEL HICKS, UMESH Ot R10.9 UNSPECIFIED ABDOMINAL PAIN 01/19/2018 KATELYN MAY DO Ot E66.9 OBESITY, UNSPECIFIED 01/19/2018 KATELYN MAY DO Ot R06.09 OTHER FORMS OF DYSPNEA 01/19/2018 KATELYN MAY DO Ot R07.9 CHEST PAIN, UNSPECIFIED 01/19/2018 MONAE PHELPS Ot R10.31 RIGHT LOWER QUADRANT PAIN 01/19/2018 EWA ARREOLA PRODUCTION PATTERN MAKER Ot R06.09 OTHER FORMS OF DYSPNEA 01/19/2018 EWA ARREOLA PRODUCTION PATTERN MAKER Ot R06.09 OTHER FORMS OF DYSPNEA 01/19/2018 EWA ARREOLA PRODUCTION PATTERN MAKER Ot R06.02 SHORTNESS OF BREATH 01/19/2018 EWA ARREOLA PRODUCTION PATTERN MAKER Ot G47.33 OBSTRUCTIVE SLEEP APNEA (ADULT) (PEDIATR 01/19/2018 EWA ARREOLA PRODUCTION PATTERN MAKER Ot R06.02 SHORTNESS OF BREATH 01/19/2018 EWA ARREOLA APRN Ot R06.09 OTHER FORMS OF DYSPNEA 01/19/2018 DANK HERNDON MD Ot R06.09 OTHER FORMS OF DYSPNEA 01/19/2018 YANICK HICKS, DANK Ot R53.82 CHRONIC FATIGUE, UNSPECIFIED 01/19/2018 DEBORAH HICKS, Debora WALKER Ot R06.09 OTHER FORMS OF DYSPNEA 01/19/2018 DEBORAH HICKS, Debora WALKER Ot R07.9 CHEST PAIN, UNSPECIFIED 01/19/2018 ZACKARY ISAACIA L GREY STOCK RECORDER Ot N64.52 NIPPLE DISCHARGE 01/19/2018 SANDRA ISAAC DO Ot R07.9 CHEST PAIN, UNSPECIFIED 01/28/2018 RIDINGSZACKARYIA C PRODUCTION PATTERN MAKER Ot 789.00 ABDOMINAL PAIN, UNSPECIFIED SITE 01/28/2018 Ot 611.6 GALACTORRHEA- NONOBSTET 01/28/2018 Ot 611.71 MASTODYNIA 01/28/2018 FRANCESCO ZHANG MD Ot 401.9 HYPERTENSION NOS 01/28/2018 FRANCESCO ZHANG MD Ot 786.09 RESPIRATORY ABNORM NEC 01/28/2018 FRANCESCO ZHANG MD Ot 786.50 CHEST PAIN NOS 01/28/2018 ALVARO HOFFMAN Ot 785.0 TACHYCARDIA NOS 01/28/2018 ALVARO HOFFMAN Ot 786.09 RESPIRATORY ABNORM NEC 01/28/2018 RIDRON BOYD KATERYNA Ot 789.00 ABDOMINAL PAIN, UNSPECIFIED SITE 01/28/2018 Ot 611.6 GALACTORRHEA- NONOBSTET 01/28/2018 Ot 611.71 MASTODYNIA 01/28/2018 FRANCESCO ZHANG MD Ot 401.9 HYPERTENSION NOS 01/28/2018 FRANCESCO ZHANG MD Ot 786.09 RESPIRATORY ABNORM NEC 01/28/2018 FRANCESCO ZHANG MD Ot 786.50 CHEST PAIN NOS 01/28/2018 ALVARO HOFFMAN Ot 785.0 TACHYCARDIA NOS 01/28/2018 ALVARO HOFFMAN Ot 786.09 RESPIRATORY ABNORM NEC 01/28/2018 ZACKARY ISAACIA L GREY STOCK RECORDER Ot N64.52 NIPPLE DISCHARGE 01/28/2018 SANDRA ISAAC DO Ot R07.9 CHEST PAIN, UNSPECIFIED 01/28/2018 ISAAC DO, SANDRA Jackie Ot R06.00 DYSPNEA, UNSPECIFIED 02/02/2018 ISAAC DO, SANDRA Mejia Ot R06.00 DYSPNEA, UNSPECIFIED 02/04/2018 RIDRON BOYD PRODUCTION PATTERN MAKER Ot 789.00 ABDOMINAL PAIN, UNSPECIFIED SITE 02/04/2018 Ot 611.6 GALACTORRHEA- NONOBSTET 02/04/2018 Ot 611.71 MASTODYNIA 02/04/2018 FRANCESCO ZHANG MD Ot 401.9 HYPERTENSION NOS 02/04/2018 FRANCESCO ZHANG MD Ot 786.09 RESPIRATORY ABNORM NEC 02/04/2018 FRANCESCO ZHANG MD Ot 786.50 CHEST PAIN NOS 02/04/2018 ALVARO HOFFMAN Ot 785.0 TACHYCARDIA NOS 02/04/2018 ALVARO HOFFMAN Ot 786.09 RESPIRATORY ABNORM NEC 02/04/2018 RON ISAAC GREY STOCK RECORDER Ot N64.52 NIPPLE DISCHARGE 02/04/2018 ISAAC DO, SANRDA Jackie Ot R07.9 CHEST PAIN, UNSPECIFIED 02/04/2018 ISAAC DO SANDRA Mejia Ot R06.00 DYSPNEA, UNSPECIFIED 02/04/2018 PONCHO ROJAS SANDRA Jackie Ot R07.9 CHEST PAIN, UNSPECIFIED 02/04/2018 ISAAC DO, SANDRA Mejia Ot R06.00 DYSPNEA, UNSPECIFIED 02/04/2018 RON ISAAC GREY STOCK RECORDER Ot N64.52 NIPPLE DISCHARGE 06/01/2018 RIDINGSRON Kary PRODUCTION PATTERN MAKER Ot 789.00 ABDOMINAL PAIN, UNSPECIFIED SITE 06/01/2018 Ot 611.6 GALACTORRHEA- NONOBSTET 06/01/2018 Ot 611.71 MASTODYNIA 06/01/2018 FRANCESCO ZHANG MD Ot 401.9 HYPERTENSION NOS 06/01/2018 FRANCESCO ZHANG MD Ot 786.09 RESPIRATORY ABNORM NEC 06/01/2018 FRANCESCO ZHANG MD Ot 786.50 CHEST PAIN NOS 06/01/2018 ALVARO HOFFMAN Ot 785.0 TACHYCARDIA NOS 06/01/2018 ALVARO HOFFMAN Ot 786.09 RESPIRATORY ABNORM NEC 06/01/2018 ISAACRON MIXON ANDREW Ot N64.52 NIPPLE DISCHARGE 06/01/2018 SANDRA ISAAC DO Ot R07.9 CHEST PAIN, UNSPECIFIED 06/01/2018 SANDRA ISAAC DO Ot R06.00 DYSPNEA, UNSPECIFIED 06/02/2018 ISAACRON MIXON ANDREW Ot R53.83 OTHER FATIGUE 06/08/2018 ISAACRON ANDREW Ot R53.83 OTHER FATIGUE Procedures Code Description [place] [address] ROUTINE VENIPUNCTURE 11/09/2014 85099 CORTISOL 11/09/2014 THYANA THYROID ANALYZER 11/09/2014 11228 MAMMOGRAM DX, SMILEY 11/14/2014 Endocrino Elisa Hui 11/14/2014 Results Test Result Range Automated blood complete blood count (hemogram) panel - 06/24/16 09:40 Blood leukocytes automated count (number/volume) 7.7 10*3/uL 4.3-11.0 Blood erythrocytes automated count (number/volume) 4.64 10*6/uL 4.35-5.85 Venous blood hemoglobin measurement (mass/volume) 14.9 g/dL 11.5-16.0 Blood hematocrit (volume fraction) 44 % 35-52 Automated erythrocyte mean corpuscular volume 94 [foz_us] 80-99 Automated erythrocyte mean corpuscular hemoglobin (mass per erythrocyte) 32 pg 25-34 Automated erythrocyte mean corpuscular hemoglobin concentration measurement ( mass/volume) 34 g/dL 32-36 Automated erythrocyte distribution width ratio 13.5 % 10.0-14.5 Automated blood platelet count (count/volume) 306 10*3/uL 130-400 Automated blood platelet mean volume measurement 9.1 [foz_us] 7.4-10.4 PT panel in platelet poor plasma by coagulation assay - 06/24/16 09:40 Prothrombin time (PT) in platelet poor plasma by coagulation assay 11.9 s 12.2-14.7 INR in platelet poor plasma or blood by coagulation assay 0.9 0.8-1.4 Activated partial thromboplastin time (aPTT) in platelet poor plasma bycoagulation assay - 06/24/16 09:40 Activated partial thromboplastin time (aPTT) in platelet poor plasma bycoagulation assay 32 s 24-35 Comprehensive metabolic panel - 06/24/16 09:40 Serum or plasma sodium measurement (moles/volume) 141 mmol/L 135-145 Serum or plasma potassium measurement (moles/volume) 3.2 mmol/L 3.6-5.0 Serum or plasma chloride measurement (moles/volume) 106 mmol/L 98-107 Carbon dioxide 25 mmol/L 21-32 Serum or plasma anion gap determination (moles/volume) 10 mmol/L 5-14 Serum or plasma urea nitrogen measurement (mass/volume) 18 mg/dL 7-18 Serum or plasma creatinine measurement (mass/volume) 1.03 mg/dL 0.60-1.30 Serum or plasma urea nitrogen/creatinine mass ratio 17 NRG Serum or plasma creatinine measurement with calculation of estimated glomerular filtration rate > NRG Serum or plasma glucose measurement (mass/volume) 105 mg/dL 70-105 Serum or plasma calcium measurement (mass/volume) 9.9 mg/dL 8.5-10.1 Serum or plasma total bilirubin measurement (mass/volume) 0.3 mg/dL 0.1-1.0 Serum or plasma alkaline phosphatase measurement (enzymatic activity/volume) 116 U/L 40-136 Serum or plasma aspartate aminotransferase measurement (enzymatic activity/ volume) 29 U/L 5-34 Serum or plasma alanine aminotransferase measurement (enzymatic activity/volume ) 37 U/L 0-55 Serum or plasma protein measurement (mass/volume) 7.4 g/dL 6.4-8.2 Serum or plasma albumin measurement (mass/volume) 4.2 g/dL 3.2-4.5 Lipid 1996 panel - 06/24/16 09:40 Serum or plasma triglyceride measurement (mass/volume) 51 mg/dL <150 Serum or plasma cholesterol measurement (mass/volume) 141 mg/dL < 200 Serum or plasma cholesterol in HDL measurement (mass/volume) 53 mg/ dL 40-60 Cholesterol in LDL [mass/volume] in serum or plasma by direct assay 81 mg/dL 1-129 Serum or plasma cholesterol in VLDL measurement (mass/volume) 10 mg/ dL 5-40 Methicillin resistant Staphylococcus aureus (MRSA) screening culture - 09:40 Methicillin resistant Staphylococcus aureus (MRSA) screening culture NEG NRG Automated blood complete blood count (hemogram) panel - 09/15/16 16:02 Blood leukocytes automated count (number/volume) 10.3 10*3/uL 4.3-11.0 Blood erythrocytes automated count (number/volume) 4.93 10*6/uL 4.35-5.85 Venous blood hemoglobin measurement (mass/volume) 15.5 g/dL 11.5-16.0 Blood hematocrit (volume fraction) 46 % 35-52 Automated erythrocyte mean corpuscular volume 94 [foz_us] 80-99 Automated erythrocyte mean corpuscular hemoglobin (mass per erythrocyte) 31 pg 25-34 Automated erythrocyte mean corpuscular hemoglobin concentration measurement ( mass/volume) 34 g/dL 32-36 Automated erythrocyte distribution width ratio 13.8 % 10.0-14.5 Automated blood platelet count (count/volume) 324 10*3/uL 130-400 Automated blood platelet mean volume measurement 9.0 [foz_us] 7.4-10.4 Whole blood basic metabolic panel - 09/15/16 16:02 Serum or plasma sodium measurement (moles/volume) 139 mmol/L 135-145 Serum or plasma potassium measurement (moles/volume) 3.5 mmol/L 3.6-5.0 Serum or plasma chloride measurement (moles/volume) 106 mmol/L 98-107 Carbon dioxide 22 mmol/L 21-32 Serum or plasma anion gap determination (moles/volume) 11 mmol/L 5-14 Serum or plasma urea nitrogen measurement (mass/volume) 15 mg/dL 7-18 Serum or plasma creatinine measurement (mass/volume) 0.98 mg/dL 0.60-1.30 Serum or plasma urea nitrogen/creatinine mass ratio 15 NRG Serum or plasma creatinine measurement with calculation of estimated glomerular filtration rate > NRG Serum or plasma glucose measurement (mass/volume) 102 mg/dL 70-105 Serum or plasma calcium measurement (mass/volume) 9.8 mg/dL 8.5-10.1 Magnesium - 09/15/16 16:02 Magnesium 2.4 mg/dL 1.8-2.4 [id number] - 07/31/17 10:09 Serum or plasma urea nitrogen measurement (mass/volume) 13 mg/dL 7-18 Serum or plasma creatinine measurement (mass/volume) 0.86 mg/dL 0.60-1.30 Serum or plasma urea nitrogen/creatinine mass ratio 15 NRG Serum or plasma creatinine measurement with calculation of estimated glomerular filtration rate > NRG Comprehensive Metabolic Panel - 09/29/17 11:49 Albumin 4.1 g/dL 3.6-5.1 ALP 173 U/L 35-130 ALT 39 U/L 6-45 Anion Gap 16 6-14 AST 34 U/L 2-40 BUN 12 mg/dL 5-25 Calcium 10.0 mg/dL 8.3-10.4 Chloride 107 mmol/L 95-114 CO2 25 mEq/L 22-33 Creat 0.80 mg/dL 0.50-1.50 eGFR 74 mL/min/1.73m2 >59 Globulin 3.7 g/dL 2.3-3.5 Glucose 62 mg/dL 70-110 Osmo 295 280-295 Potassium 4.3 mmol/L 3.5-5.3 Sodium 144 mmol/L 134-148 TBil 0.2 mg/dL 0.2-1.2 TP 7.8 g/dL 6.0-8.3 MRSA Screen - 09/29/17 11:49 FINAL CULTURE RESULTS MRSA Negative Nasal Culture MEDIA PLATED Setup at 12:04 on 09/29/2017 C-Reactive Protein - 10/30/17 12:04 C-Reactive Protein 0.32 mg/dL 0.00-0.50 Rheumatiod Factor, Quantitative - 10/30/17 12:04 Rheumatoid Factor, Quantitative <15 IU/ml 0-30 THYROID STIMULATING HORMONE - 06/01/18 11:08 THYROID STIMULATING HORMONE 1.14 u[iU]/mL 0.35-4.94 Serum or plasma thyroxine (T4) free measurement (mass/volume) - 06/01/18 11:08 Serum or plasma thyroxine (T4) free measurement (mass/volume) 0.90 ng/dL 0.70-1.48 Hemoglobin A1c - 06/26/18 08:38 Blood hemoglobin A1C measurement (mass/volume) 6.5 % 4.0- 5.6 MEAN BLOOD GLUCOSE 140 % <=126 Encounters ACCT No. Visit Date/Time Discharge Status Pt. Type Provider Facility Loc./Unit Complaint [id number] 11/14/2014 09:30:00 11/14/2014 23:59:59 CLS Outpatient TOMMY REBOLLEDO APRN [id number] 11/09/2014 07:45:00 11/09/2014 23:59:59 CLS Outpatient MELIA MARIN MD [id number] 11/08/2014 08:18:00 11/08/2014 23:59:59 CLS Outpatient MELIA MARIN MD [id number] 11/03/2014 10:51:00 11/03/2014 23:59:59 CLS Outpatient MELIA MARIN MD [id number] 04/22/2017 13:24:13 04/22/2017 23:59:59 CLS Outpatient [id number] 01/12/2018 13:54:00 01/12/2018 23:59:00 DIS Outpatient SANDRA ISAAC [id number] 10/30/2017 11:51:00 10/30/2017 23:59:00 DIS Outpatient DONELLMILENA [id number] 10/22/2017 15:34:00 10/22/2017 23:59:00 DIS Outpatient DONELLMILENA [id number] 10/09/2017 14:49:00 10/09/2017 23:59:00 DIS Outpatient DONELLMILENA [id number] 10/01/2017 08:24:00 10/01/2017 12:20:00 DIS Outpatient DONELLMILENA [id number] 09/29/2017 11:18:00 09/29/2017 23:59:00 DIS Outpatient DONELLMILENA [id number] 09/29/2017 12:44:14 Document Registration [id number] 06/26/2018 08:20:00 06/26/2018 23:59:59 CLS Outpatient SANDRA ISAAC DO [facility] LAB TYPE 2 DIABTEES [id number] 06/01/2018 13:02:00 06/01/2018 23:59:59 CLS Outpatient RON ISAAC [facility] LAB FATIGUE [id number] 01/27/2018 08:34:00 01/27/2018 23:59:59 CLS Outpatient SANDRA ISAAC DO [facility] RT DYSPNEA R06.00 [id number] 01/05/2018 06:57:00 01/05/2018 23:59:59 CLS Outpatient SANDRA ISAAC DO [facility] CARD CHEST PAIN [id number] 07/31/2017 10:00:00 07/31/2017 23:59:59 CLS Outpatient RON ISAAC [facility] RAD BILAT NIPPLE DISCHARGE [id number] 07/16/2017 10:15:00 07/16/2017 23:59:59 CLS Preadmit RON ISAAC [facility] RAD SCREENING [id number] 10/22/2016 15:00:00 10/22/2016 23:59:59 CLS Preadmit DEBORAH HICKS, Debora WALKRE [facility] CARD TOLBERT,CHEST PAIN SYNDROME [id number] 07/23/2016 15:09:00 10/21/2016 00:01:00 DIS Outpatient Debora CABRERA MD [facility] CARD TOLBERT,CHEST PAIN SYNDROME [id number] 09/15/2016 14:50:00 09/15/2016 23:59:59 CLS Outpatient DANK HERNDON MD [facility] CARD DYSPNEA ON EXERTION, CHRONIC FATIGUE [id number] 07/28/2016 14:25:00 07/28/2016 23:59:59 CLS Outpatient EWA ARREOLA PRODUCTION PATTERN MAKER [facility] CARD TOLBERT,SOB,SOA [id number] 07/15/2016 12:28:00 07/15/2016 23:59:59 CLS Outpatient EWA ARREOLA APRN [facility] LAB SOB,TOLBERT [id number] 07/09/2016 10:24:00 07/09/2016 23:59:59 CLS Outpatient EWA ARREOLA APRN [facility] RAD TOLBERT,R/O PE [id number] 07/08/2016 13:15:00 07/08/2016 13:42:00 DIS Outpatient KATELYN MAY DO [facility] SLEEP SOB WITH EXCERSION, HTN [id number] 07/03/2016 12:13:00 07/03/2016 23:59:59 CLS Outpatient EWA ARREOLA PRODUCTION PATTERN MAKER [facility] LAB DYSPNEA ON EXERTION [id number] 06/30/2016 14:42:00 06/30/2016 23:59:59 CLS Outpatient MONAE PHELPS [facility] RAD RT GROIN PAIN [id number] 06/30/2016 13:07:00 06/30/2016 23:59:59 CLS Outpatient KATELYN MAY DO [facility] RT CHEST PAIN SYNDROME,TOLBERT, OBESITY [id number] 06/24/2016 09:07:00 06/24/2016 15:45:00 DIS Outpatient SULEMAN HICKS FACC, BARNEY GATES CCDS [facility] CATH CHEST PAIN, SOB [id number] 06/06/2016 10:18:00 06/06/2016 14:55:00 DIS Outpatient UMESH LIM MD [facility] EPIGASTRIC PAIN [id number] 06/03/2016 05:52:00 06/03/2016 12:32:00 DIS Outpatient UMESH LIM MD [facility] PREOP EPIGASTRIC PAIN [id number] 05/23/2016 11:41:00 05/23/2016 23:59:59 CLS Outpatient UMESH LIM MD [facility] RAD ABD PAIN,SOB [id number] 05/22/2016 15:30:00 05/22/2016 23:59:59 CLS Outpatient DARIN FRITZ MD [facility] RAD CHEST WALL PAIN [id number] 04/24/2016 12:28:00 04/25/2016 16:38:00 DIS Outpatient UMESH LIM MD [facility] ACUTE CHOLECYSTITIS [id number] 04/04/2016 19:23:00 04/04/2016 20:31:00 DIS Emergency WILIAM LOPEZ APRN [facility] ER BLEACH IN EYE [id number] 03/01/2016 11:35:00 03/01/2016 23:59:59 CLS Outpatient DARIN FRITZ MD [facility] RAD BILATERAL BREAST DISCHARGE [id number] 01/31/2016 09:22:00 01/31/2016 23:59:59 CLS Outpatient MELIA MARIN MD [facility] RAD NIPPLE DISCHARGE [id number] 11/14/2015 13:33:00 11/14/2015 23:59:59 CLS Outpatient HAYDE SINGLETON PRODUCTION PATTERN MAKER [facility] RAD BILATERAL NIPPLE DISCHARGE [id number] 07/19/2015 11:54:00 07/19/2015 23:59:59 CLS Outpatient SRIDEVI WOOTEN MD [facility] RAD CKD 3 [id number] 05/09/2015 15:30:00 05/09/2015 23:59:59 CLS Outpatient HARRIET HICKS, BEN Mejia [facility] RT DYSPNEA,CHRONIC FATIGUE,TOLBERT [id number] 02/09/2015 08:05:00 02/27/2015 09:54:00 DIS Outpatient TANIA HICKS, MELIA Ventura [facility] REHAB HIP PAIN, POSSIBLE ITB SYNDROME [id number] 01/01/2015 13:09:00 01/01/2015 23:59:59 CLS Outpatient ALVARO HOFFMAN [facility] RAD DYSPNEA, TACHYCARDIA [id number] 01/01/2015 10:20:00 01/01/2015 23:59:59 CLS Outpatient LEATHA HICKS, FRANCESCO Mejia [facility] CARD CP.TOLBERT,HTN [id number] 12/27/2014 19:11:00 12/27/2014 21:54:00 DIS Emergency POOL HICKS, BETH Davis [facility] ER CHEST PAIN,SOA,BILAT LEG PAIN [id number] 02/15/2013 15:45:00 02/15/2013 19:35:00 DIS Emergency JUVENCIO HOLCOMB DO [facility] ER CONSTIPATION [id number] 02/09/2013 16:21:00 02/09/2013 23:59:59 CLS Outpatient RIDINGS, RON C PRODUCTION PATTERN MAKER [facility] RAD ABD PAIN [id number] 07/20/2015 15:09:00 Document Registration [id number] 11/22/2014 13:16:00 Document Registration [id number] 02/23/2012 15:01:00 Document Registration [id number] 02/06/2012 10:19:00 Document Registration [id number] 09/10/2011 10:43:00 Document Registration [id number] 08/19/2011 13:46:00 Document Registration [id number] 09/29/2017 11:18:00 Document Registration
[2018-07-05 12:52] LABS: BASOPHILS % (AUTO) 0 % (0-10); EOSINOPHILS # (AUTO) 0.1 10^3/uL (0.0-0.3); EOSINOPHILS % (AUTO) 1 % (0-10); HEMATOCRIT 46 % (35-52); HEMOGLOBIN 15.2 G/DL (11.5-16.0); LYMPHOCYTES # (AUTO) 2.5 X 10^3 (1.0-4.0); LYMPHOCYTES % (AUTO) 33 % (12-44); MEAN CORPUSCULAR HEMOGLOBIN 32 PG (25-34); MEAN CORPUSCULAR HGB CONC 33 G/DL (32-36); MEAN CORPUSCULAR VOLUME 95 FL (80-99); MEAN PLATELET VOLUME 9.2 FL (7.4-10.4); MONOCYTES # (AUTO) 0.6 X 10^3 (0.0-1.0); MONOCYTES % (AUTO) 7 % (0-12); NEUTROPHILS # (AUTO) 4.6 X 10^3 (1.8-7.8); NEUTROPHILS % (AUTO) 59 % (42-75); PLATELET COUNT 262 10^3/uL (130-400); RED BLOOD COUNT 4.83 10^6/uL (4.35-5.85); RED CELL DISTRIBUTION WIDTH 13.9 % (10.0-14.5); WHITE BLOOD COUNT 7.8 10^3/uL (4.3-11.0)
[2018-07-05 13:12] LABS: ALANINE AMINOTRANSFERASE 35 U/L (0-55); ALBUMIN 4.3 GM/DL (3.2-4.5); ALKALINE PHOSPHATASE 148 U/L (40-136); BILIRUBIN,TOTAL 0.5 MG/DL (0.1-1.0); BUN/CREATININE RATIO 15; CALCIUM 9.9 MG/DL (8.5-10.1); CARBON DIOXIDE 22 MMOL/L (21-32); CHLORIDE 107 MMOL/L (98-107); CREATININE SERUM 0.86 MG/DL (0.60-1.30); GFR ESTIMATED > 60; GLUCOSE 104 MG/DL (70-105); POTASSIUM 4.1 MMOL/L (3.6-5.0); SODIUM 140 MMOL/L (135-145); TOTAL PROTEIN 8.1 GM/DL (6.4-8.2)
[2018-07-05 14:01] VITALS: BP 153/88
== END 2018-07-05 14:01 | disposition home or self-care (01) ==
LOC: EDUNIT# 11:48 → ER 11:49
DX: M79.632 Pain in left forearm (principal); R07.9 Chest pain, unspecified; Z90.89 Acquired absence of other organs; Z79.84 Long term (current) use of oral hypoglycemic drugs; Z90.710 Acquired absence of both cervix and uterus
CPT/HCPCS: 36415; 80053; 83880; 84443; 84484; 85025; 93005

== ENCOUNTER → 2018-08-04 | Outpatient (CLI) | payer OTHER ==
--- NOTE | 2018-08-04 14:22 | Diagnostic Imaging Report ---
INDICATION: Bilateral breast lumps in the axillary regions. Comparison is made with prior exam from 03/18/2016 and 11/14/2015. 2-D and 3-D bilateral diagnostic mammography was performed with CAD. The current study was also evaluated with a Computer Aided Detection (CAD) system. FINDINGS: Scattered fibroglandular densities are noted bilaterally. There is ductal ectasia in the retroareolar regions bilaterally, similar to prior exam. No discrete mass is identified. No suspicious calcifications are identified. No abnormality at the areas of palpable abnormality in the axillary regions are seen. There are small lymph nodes in the axilla. IMPRESSION: No mammographic features suspicious for malignancy are identified. Even so, sonographic interrogation of the areas of palpable nodularity in the upper outer breasts bilaterally is recommended and will be performed today. ACR BI-RADS Category 0: Incomplete. (Needs additional imaging evaluation). Result letter will be mailed to the patient. Note: At least 10% of breast cancer is not imaged by mammography. Dictated by: Dictated on workstation # [id number]
--- NOTE | 2018-08-04 14:24 | Diagnostic Imaging Report ---
Indication: Bilateral palpable lumps in the axillary regions. Sonographic interrogation of the right and left axilla was performed. No sonographic abnormality is seen. No solid or cystic masses are detected. Impression: BI-RADS category 1 No sonographic abnormality is detected. Continued clinical and self breast exam is recommended to confirm stability of the areas of palpable abnormality. Dictated by: Dictated on workstation # [id number]
== END ==
LOC: RAD 13:11
PROVIDERS: ATTEND Internal Medicine
DX: N63.10 Unspecified lump in the right breast, unspecified quadrant (principal); N63.20 Unspecified lump in the left breast, unspecified quadrant
CPT/HCPCS: 76642; 77066

== ENCOUNTER → 2019-02-01 | Outpatient (CLI) | payer OTHER ==
[2019-02-01 09:32] LABS: HEMOGLOBIN 15.7 G/DL (11.5-16.0); MEAN PLATELET VOLUME 8.8 FL (7.4-10.4); WHITE BLOOD COUNT 7.6 10^3/uL (4.3-11.0)
[2019-02-01 09:50] LABS: ALANINE AMINOTRANSFERASE 37 U/L (0-55); ALBUMIN 4.4 GM/DL (3.2-4.5); ALKALINE PHOSPHATASE 141 U/L (40-136); BILIRUBIN,TOTAL 0.6 MG/DL (0.1-1.0); BUN/CREATININE RATIO 12; CALCIUM 9.9 MG/DL (8.5-10.1); CARBON DIOXIDE 22 MMOL/L (21-32); CHLORIDE 107 MMOL/L (98-107); CREATININE SERUM 0.98 MG/DL (0.60-1.30); GFR ESTIMATED > 60; GLUCOSE 110 MG/DL (70-105); POTASSIUM 3.9 MMOL/L (3.6-5.0); SODIUM 143 MMOL/L (135-145); TOTAL PROTEIN 8.3 GM/DL (6.4-8.2)
== END ==
LOC: LAB 09:18
PROVIDERS: ATTEND Nurse Practitioner Family
DX: I89.0 Lymphedema, not elsewhere classified (principal); N64.59 Other signs and symptoms in breast; L29.9 Pruritus, unspecified
CPT/HCPCS: 36415; 80053; 85027; 85652; 86038

== ENCOUNTER → 2019-02-09 | Outpatient (CLI) | payer OTHER ==
[~2019-02-09] MED LIST changes: +GADOBUTROL 10 MMOL/10 ML (GADAVIST) VIAL IV ONE
--- NOTE | 2019-02-09 19:07 | Diagnostic Imaging Report ---
INDICATION: Nipple discharge. INDICATION: MRI of the breast with and without contrast. TECHNIQUE: MRI of the breast was performed utilizing bilateral 8-channel breast coil with a 1.5 Katie GE magnet. High-resolution sagittal T2-weighted fat-sat images were obtained as well as temporal images for sequential evaluation following intravenous gadolinium. Images were processed and evaluated by [employer]. FINDINGS: The previous breast MRI exam of 07/31/2017 noted stable symmetrical bilateral dilated ducts without intraluminal filling defects. These findings seemed unchanged when compared to the prior breast MRI exam of 01/31/16. The bilateral diagnostic mammogram and ultrasound exam performed on 08/04/2018 failed to show any sign of malignancy or cause for the patient's nipple discharge. On this exam, there is still no abnormal enhancement that would suggest that a neoplastic or infectious process. The ductal dilatation of both retroareolar regions, seen on the prior study, does not appear to have changed significantly. There is still no evidence for a defect within either ductal system to indicate a mass. Reportedly, the patient has pain in the region of the xiphoid process of the sternum. There is no abnormal signal arising from the xiphoid process or the adjacent soft tissues to suggest an acute abnormality. When compared the prior study there does not appear to have been any significant change in this area. IMPRESSION: 1. There is no evidence of malignancy. 2. There is persistent dilatation of the ductal systems in each retroareolar region. There is no sign of an intraductal mass , however. 3. There is no acute abnormality in the region of the xiphoid process of the sternum. 4. These results were discussed with ANDREW Elam. ACR BI-RADS Category 1: Negative. Result letter will be mailed to the patient. Note: At least 10% of breast cancer is not imaged by mammography. Dictated by: Dictated on workstation # [id number]
== END ==
LOC: RAD 07:42
PROVIDERS: ATTEND Nurse Practitioner Family
DX: N64.52 Nipple discharge (principal)
CPT/HCPCS: 77049

== ENCOUNTER → 2019-02-17 | Outpatient (CLI) | payer OTHER ==
[~2019-02-17] MED LIST changes: -GADOBUTROL 10 MMOL/10 ML (GADAVIST) VIAL IV ONE
--- NOTE | 2019-02-17 15:40 | Diagnostic Imaging Report ---
PROCEDURE: MR imaging abdomen without contrast. TECHNIQUE: Multiplanar, multisequence MR imaging of the abdomen was performed without contrast. INDICATION: Pain in the xiphoid region for 2 years. FINDINGS: An oil marker was placed at the area of pain in the midline of the lower chest in the region of the xiphoid. No underlying abnormality is identified. The marrow signal intensity of the sternal body and xiphoid appears normal. No marrow lesion or edema is present. Subcutaneous tissues are unremarkable. No solid or cystic mass is detected. The intra-abdominal structures are unremarkable. Liver, pancreas and spleen are unremarkable. No adrenal mass is seen. The kidneys are unremarkable. There is no ascites. IMPRESSION: Unremarkable MRI of the abdomen without contrast. No abnormality is detected. Dictated by: Dictated on workstation # [id number]
== END ==
LOC: RAD 14:40
PROVIDERS: ATTEND Nurse Practitioner Family
DX: R10.9 Unspecified abdominal pain (principal)
CPT/HCPCS: 74181

== ENCOUNTER → 2019-04-22 | Outpatient (CLI) | payer OTHER | LOC: LAB 12:06 | PROVIDERS: ATTEND Internal Medicine | DX: R53.83 Other fatigue (principal) | CPT/HCPCS: 36415; 84443 ==

== ENCOUNTER 2019-05-22 16:07 | Emergency (ER) | payer SELFPAY ==
[~2019-05-22] VITALS: Ht 162.6 cm; Wt 86.2 kg
[~2019-05-22 16:07] MED LIST changes: +CYAN-41 PO; -CYAN10006 PO
[2019-05-22 16:35] LABS: BASOPHILS % (AUTO) 0 % (0-10); EOSINOPHILS # (AUTO) 0.1 10^3/uL (0.0-0.3); EOSINOPHILS % (AUTO) 1 % (0-10); HEMATOCRIT 48 % (35-52); LYMPHOCYTES # (AUTO) 2.8 X 10^3 (1.0-4.0); LYMPHOCYTES % (AUTO) 30 % (12-44); MEAN CORPUSCULAR HEMOGLOBIN 32 PG (25-34); MEAN CORPUSCULAR HGB CONC 33 G/DL (32-36); MEAN CORPUSCULAR VOLUME 96 FL (80-99); MEAN PLATELET VOLUME 9.2 FL (7.4-10.4); MONOCYTES # (AUTO) 0.7 X 10^3 (0.0-1.0); MONOCYTES % (AUTO) 7 % (0-12); NEUTROPHILS # (AUTO) 5.6 X 10^3 (1.8-7.8); NEUTROPHILS % (AUTO) 61 % (42-75); PLATELET COUNT 306 10^3/uL (130-400); RED CELL DISTRIBUTION WIDTH 14.1 % (10.0-14.5); WHITE BLOOD COUNT 9.2 10^3/uL (4.3-11.0)
[2019-05-22 16:43] LABS: PROTHROMBIN TIME PATIENT 13.4 SEC (12.2-14.7)
[2019-05-22 16:49] LABS: ALANINE AMINOTRANSFERASE 39 U/L (0-55); ALBUMIN 4.4 GM/DL (3.2-4.5); ALKALINE PHOSPHATASE 170 U/L (40-136); BILIRUBIN,TOTAL 0.4 MG/DL (0.1-1.0); BUN/CREATININE RATIO 16; CALCIUM 10.3 MG/DL (8.5-10.1); CARBON DIOXIDE 24 MMOL/L (21-32); CHLORIDE 105 MMOL/L (98-107); CREATININE SERUM 1.04 MG/DL (0.60-1.30); GFR ESTIMATED > 60; GLUCOSE 115 MG/DL (70-105); MAGNESIUM 2.3 MG/DL (1.6-2.4); POTASSIUM 4.3 MMOL/L (3.6-5.0); SODIUM 141 MMOL/L (135-145); TOTAL PROTEIN 8.6 GM/DL (6.4-8.2)
--- NOTE | 2019-05-22 16:53 | ED Chest Pain ---
General Chief Complaint: Chest Pain Stated Complaint: CHEST PAIN Source: patient, old records Exam Limitations: no limitations (BETH LANZA MD) History of Present Illness Date Seen by Provider: May 22, 2019 Time Seen by Provider: 16:49 Initial Comments A 58 yo female presents to the ER complaining of chest pain. She states the chest pain started 3 days ago and has progressively gotten worse. She describes the pain as constant but does feel as if it is fluttering. The pain radiates to her right arm and right back. It gets worse with activity and rates the pain a 10/10. She has had SOB and Nausea. (JAVI TALLEY) Initial Comments Patient was seen, interviewed, and examined along with Javi Talley MS3. Patient presents with complaints of exacerbation of a chronic chest pain that has been ongoing for many months. She has had multiple cardiac workups in the past and has not been found to have coronary artery disease. Patient's symptoms have worsened over the last 3 days. She has chronic dyspnea with exertion but states this has become worse and even present at rest over the past 3 days. Her chest pain is reproducible with palpation and deep breathing. She does have a history of prior DVT for which she was anticoagulated temporarily. She is no longer anticoagulated. (BETH LANZA MD) Allergies and Home Medications Allergies Coded Allergies: No Known Drug Allergies (Unverified , 06/03/16) Home Medications Cholecalciferol (Vitamin D3) 1,000 Unit Tablet, 1,000 UNIT PO DAILY, (Reported) Cyanocobalamin (Vitamin B-12) 5,000 Mcg Tab.rapdis, 2,500 MCG PO DAILY, (Reported) TAKES 1/2 (5,000MCG) TABLET Ergocalciferol (Vitamin D2) 50,000 Unit Capsule, 50,000 UNIT PO [place], (Reported) Metformin HCl 500 Mg Tablet, 250 MG PO BID, (Reported) TAKES 1/2 (500MG) TABLET Potassium Chloride 20 Meq Tab.er.prt, 20 MEQ PO BID, (Reported) Prednisone 20 Mg Tab, 40 MG PO DAILY Prescribed by: BETH HERNÁNDEZ on 05/22/191952 Topiramate 25 Mg Tablet, 25 MG PO BID, (Reported) Triamterene/Hydrochlorothiazid 1 Each Tablet, 1 TAB PO DAILY, (Reported) Patient Home Medication List Home Medication List Reviewed: Yes (BETH LANZA MD) Review of Systems Review of Systems Constitutional: No chills, No fever; weight gain EENTM: Blurred Vision; No Eye Pain, No Other (Changes in Hearing) Respiratory: Shortness of Air, SOA With Exertion, SOA at Rest Cardiovascular: Chest Pain Gastrointestinal: Abdomen Distended, Nausea; Denies Vomiting (JAVI TALLEY) Genitourinary: No Symptoms Reported Musculoskeletal: see HPI Skin: no symptoms reported Psychiatric/Neurological: Anxiety Endocrine: No Symptoms Reported Hematologic/Lymphatic: No Symptoms Reported (BETH LANZA MD) Past Xlzoxxz-Vcgery-Xqchdv Hx Past Med/Social Hx: Reviewed and Corrections made (BETH LANZA MD) Patient Social History Recent Foreign Travel: No Contact w/Someone Who Travel: No Recent Hopitalizations: No (JAVI TALLEY) Immunizations Up To Date Tetanus Booster (TDap): Unknown PED Vaccines UTD: No (JAVI TALLEY) Seasonal Allergies Seasonal Allergies: No (JAVI TALLEY) Past Medical History Surgeries: Yes Appendectomy, Hysterectomy Respiratory: No Currently Using CPAP: No Currently Using BIPAP: No Cardiac: No Neurological: No Reproductive Disorders: Yes (1999 total hysterectomy) Female Reproductive Disorders: Denies [employer] History: Hysterectomy Sexually Transmitted Disease: No HIV/AIDS: No Gastrointestinal: No Musculoskeletal: No Endocrine: No Cancer: No Psychosocial: No Integumentary: No Blood Disorders: No (JAVI TALLEY) Cardiac: Yes Deep Vein Thrombosis (BETH LANZA MD) Family Medical History Patient reports no known family medical history. No Pertinent Family Hx (JAVI TALLEY) Physical Exam Vital Signs Vital Signs - First Documented 05/22/19 05/22/19 16:20 19:28 Temp 99.0 Pulse 115 Resp 18 B/P (MAP) 133/95 (108) Pulse Ox 99 O2 Delivery Room Air (BETH LANZA MD) Vital Signs Capillary Refill : (JAVI TALLEY) Height, Weight, BMI Height: 5'4.00" Weight: 200lbs. 0.0oz. 90.984427mf; 33.8 BMI Method:Stated General Appearance: Anxious, Mild Distress, Obese Respiratory: Lungs Clear, Normal Breath Sounds, No Accessory Muscle Use, Other (Tenderness in the sternum) Cardiovascular: Regular Rate, Rhythm, No JVD, No Murmur, Normal Peripheral Pulses Gastrointestinal: Normal Bowel Sounds, No Organomegaly, No Pulsatile Mass, Tenderness (In the Epigastric region) Extremity: Normal Capillary Refill, No Calf Tenderness, Swelling (Slight swelling noted in the right hand) Neurologic/Psychiatric: Alert, Oriented x3 (JAVI TALLEY) Other comments Patient was seen and examined by me along with MS3. Gen.: Alert, oriented, anxious HEENT: Normocephalic, mucous membranes moist Neck: Normal to inspection Lungs: Clear to auscultation bilaterally with normal effort, decreased air movement with forced expiration Heart: Regular rate and rhythm without murmur Abdomen: Soft, tender over the xiphoid process, normal bowel sounds Extremities: No edema, nontender, normal to inspection Psych/neuro: Anxious, no focal deficits Skin: Warm and dry without rashes (BETH LANZA MD) Progress/Results/Core Measures Results/Orders Lab Results Laboratory Tests Test 05/22/19 16:20 Range/Units White Blood Count 9.2 4.3-11.0 10^3/uL Red Blood Count 5.06 4.35-5.85 10^6/uL Hemoglobin 16.0 11.5-16.0 G/DL Hematocrit 48 35-52 % Mean Corpuscular Volume 96 80-99 FL Mean Corpuscular Hemoglobin 32 25-34 PG Mean Corpuscular Hemoglobin Concent 33 32-36 G/DL Red Cell Distribution Width 14.1 10.0-14.5 % Platelet Count 306 130-400 10^3/uL Mean Platelet Volume 9.2 7.4-10.4 FL Neutrophils (%) (Auto) 61 42-75 % Lymphocytes (%) (Auto) 30 12-44 % Monocytes (%) (Auto) 7 0-12 % Eosinophils (%) (Auto) 1 0-10 % Basophils (%) (Auto) 0 0-10 % Neutrophils # (Auto) 5.6 1.8-7.8 X 10^3 Lymphocytes # (Auto) 2.8 1.0-4.0 X 10^3 Monocytes # (Auto) 0.7 0.0-1.0 X 10^3 Eosinophils # (Auto) 0.1 0.0-0.3 10^3/uL Basophils # (Auto) 0.0 0.0-0.1 10^3/uL Prothrombin Time 13.4 12.2-14.7 SEC INR Comment 1.0 0.8-1.4 Activated Partial Thromboplast Time 32 24-35 SEC D-Dimer 0.58 H 0.00-0.49 UG/ML Sodium Level 141 135-145 MMOL/L Potassium Level 4.3 3.6-5.0 MMOL/L Chloride Level 105 98-107 MMOL/L Carbon Dioxide Level 24 21-32 MMOL/L Anion Gap 12 5-14 MMOL/L Blood Urea Nitrogen 17 7-18 MG/DL Creatinine 1.04 0.60-1.30 MG/DL Estimat Glomerular Filtration Rate > 60 BUN/Creatinine Ratio 16 Glucose Level 115 H 70-105 MG/DL Calcium Level 10.3 H 8.5-10.1 MG/DL Corrected Calcium 10.0 8.5-10.1 MG/DL Magnesium Level 2.3 1.6-2.4 MG/DL Total Bilirubin 0.4 0.1-1.0 MG/DL Aspartate Amino Transf (AST/SGOT) 31 5-34 U/L Alanine Aminotransferase (ALT/SGPT) 39 0-55 U/L Alkaline Phosphatase 170 H 40-136 U/L Myoglobin 59.0 10.0-92.0 NG/ML Troponin I < 0.028 <0.028 NG/ML B-Type Natriuretic Peptide < 10.0 <100.0 PG/ML Total Protein 8.6 H 6.4-8.2 GM/DL Albumin 4.4 3.2-4.5 GM/DL (BETH LANZA MD) My Orders Orders - BETH LANZA MD Cbc With Automated Diff (05/22/19 16:) Magnesium (05/22/19 16:27) Chest 1 View, Ap/Pa Only (05/22/19 16:) Ekg Tracing (05/22/19 16:27) Cardiac Profile 1 (05/22/19 16:) Comprehensive Metabolic Panel (05/22/19 16:) Myoglobin Serum (05/22/19 16:27) Protime With Inr (05/22/19 16:27) Partial Thromboplastin Time (05/22/19 16:27) O2 (05/22/19 16:27) Monitor-Rhythm Ecg Trace Only (05/22/19 16:27) Ed Iv/Invasive Line Start (05/22/19 16:27) BNP (05/22/19 16:56) Lidocaine 2% Viscous 15 Ml (Xylocaine Vi (05/22/19 17:45) Antacid Suspension (Mylanta Suspension (05/22/19 17:45) Aspirin Chewable Tablet (Baby Aspirin Ch (05/22/19 17:45) Fibrin Degradation Products (05/22/19 17:40) Nitroglycerin 0.4 Mg Btl 25's (Nitrostat (05/22/19 18:15) Nitroglycerin 0.4 Mg Btl 25's (Nitrostat (05/22/19 18:00) Ct Angio Chest W (05/22/19 18:21) Iohexol Injection (Omnipaque 350 Mg/Ml 1 (05/22/19 18:30) Received Contrast (Hold Metformin- Contr (05/22/19 18:30) Ns (Ivpb) (Sodium Chloride 0.9% Ivpb Bag (05/22/19 18:30) Albuterol/Ipra Inhalation Soln (Duoneb I (05/22/19 19:30) Svn Small Volume Nebulizer (05/22/19 19:18) Ketorolac Injection (Toradol Injection) (05/22/19 19:30) Prednisone Tablet (Deltasone Tablet) (05/22/19 20:00) (BETH LANZA MD) Medications Given in ED Current Medications Medications Dose Ordered Sig/Sudhakar Route Start Time Stop Time Status Last Admin Dose Admin Albuterol/ Ipratropium 3 ml ONCE ONCE INH 05/22/19 19:30 05/22/19 19:31 DC 05/22/19 19:30 3 ML Ketorolac Tromethamine 15 mg ONCE ONCE IVP 05/22/19 19:30 05/22/19 19:31 DC 05/22/19 19:23 15 MG Prednisone 40 mg ONCE ONCE PO 05/22/19 20:00 05/22/19 20:01 DC 05/22/19 20:02 40 MG (BETH LANZA MD) Vital Signs/I&O 05/22/19 05/22/19 05/22/19 16:20 19:28 20:08 Temp 99.0 98.6 Pulse 115 74 Resp 18 18 B/P (MAP) 133/95 (108) 126/65 (85) Pulse Ox 99 98 O2 Delivery Room Air Room Air (BETH LANZA MD) Progress Progress Note : Progress Note Cardiac workup was unremarkable. Aspirin was given. Nitroglycerin did not improve pain but caused headache. Chart was reviewed and cardiac catheter in 2016 and follow-up stress test were also unremarkable. Patient was further evaluated with a d-dimer which was slightly elevated. Follow-up CT angiogram was negative for any cause of pain including pulmonary embolus. Various treatments were attempted including a GI cocktail and Toradol. Patient was reexamined and found to have difficulty producing forced expiration. A DuoNeb was therefore administered. This seemed to help her breathe a little bit better but did not help her with the pain. I inquired about anxiety as a possible contributing factor. Patient did not seem to think that anxiety contributed to her problem. I suggested trying a short course of prednisone with close follow- up with her primary care provider. Patient was discouraged from using phentermine in the future. I believe exposure to high-dose phentermine to be a significant contributing factor. Patient was offered further treatment with additional pain medication and anxiolytics. She declined these therapies. (BETH LANZA MD) Initial ECG Impression Date: May 22, 2019 Initial ECG Impression Time: 16:09 Initial ECG Rate: 108 Initial ECG Rhythm: S.Tach Initial ECG Intervals: Normal Comment Sinus tachycardia with no ST elevation or depression. No abnormal intervals or axis deviation. (BETH LANZA MD) Diagnostic Imaging Diagonstic Imaging: Xray Plain Films/CT/US/NM/MRI: chest Comments NAME: HARLAN CHILDS MED REC#: [id number] PT STATUS: REG ER : 1960 PHYSICIAN: BETH LANZA MD ADMIT DATE: 05/22/19/ER Draft Date of Exam:05/22/19 CHEST 1 VIEW, AP/PA ONLY INDICATION: Shortness of breath, chest pain. COMPARISON: 05/12/2016. FINDINGS: A single view of the chest demonstrate clear lungs bilaterally. The heart is normal. There is no pneumothorax. The osseous structures are normal. IMPRESSION: Negative chest. Dictated on workstation # [id number] Dict: 05/22/19 1704 Trans: 05/22/19 1711 ACB [id number] Interpreted by: PAMELA ALLEN Diagonstic Imaging: CT Plain Films/CT/US/NM/MRI: chest Comments CT angiogram chest viewed by me and report reviewed. See report below: NAME: HARLAN CHILDS [facility] REC#: [id number] PT STATUS: REG ER : 1960 PHYSICIAN: BETH LANZA MD ADMIT DATE: 05/22/19/ER Draft Date of Exam:05/22/19 CT ANGIO CHEST W PROCEDURE: CT angiography of the chest with contrast. TECHNIQUE: Multiple contiguous axial images were obtained through the chest after uneventful bolus administration of intravenous contrast. 3D reconstructed CTA MIP acquisitions were also performed. Auto Exposure Controls were utilized during the CT exam to meet ALARA standards for radiation dose reduction. INDICATION: Shortness of breath, chest pain, tachycardia. COMPARISON: None. FINDINGS: The heart size is normal. The aorta and pulmonary arteries are grossly intact. No embolism or aortic pathology is seen. The visualized origins of the great vessels are normal. There is no pericardial or pleural effusion. There is no lymphadenopathy. Both lungs are clear. Osseous structures and visualized upper abdominal solid organs are intact. IMPRESSION: Negative CTA of the chest. Dictated on workstation # [id number] Dict: 05/22/19 1857 Trans: 05/22/19 1903 [facility] Interpreted by: PAMELA ALLEN (BETH LANZA MD) Departure Impression Primary Impression: Atypical chest pain Additional Impression: Dyspnea on exertion Disposition: 01 HOME, SELF-CARE Condition: Stable Departure-Patient Inst. Decision time for Depature: 19:45 (BETH LANZA MD) Referrals: SANDRA ISAAC DO (PCP/Family) Primary Care Physician Patient Instructions: Chest Pain That Is Not Caused by the Heart (DC) Add. Discharge Instructions: Follow-up with your primary care provider soon as possible. Take prednisone as prescribed. Take with food or milk to avoid stomach upset. Return to care if you have worsening symptoms. Discontinue phentermine. All discharge instructions reviewed with patient and/or family. Voiced understanding. Scripts Prednisone (Prednisone) 20 Mg Tab 40 MG PO DAILY, #4 TAB 0 Refills Prov: BETH LANZA MD 05/22/19 Copy Copies To 1: SANDRA ISAAC DO Copies To 2: FRANCESCO ZHANG MD, [facility] May 22, 2019 16:53 BETH LANZA MD May 22, 2019 19:53
--- NOTE | 2019-05-22 17:12 | Diagnostic Imaging Report ---
INDICATION: Shortness of breath, chest pain. COMPARISON: 05/12/2016. FINDINGS: A single view of the chest demonstrate clear lungs bilaterally. The heart is normal. There is no pneumothorax. The osseous structures are normal. IMPRESSION: Negative chest. Dictated by: Dictated on workstation # [id number]
[2019-05-22] MEDS ORDERED: ASPIRIN 81 MG CHEW (CHILDREN'S ASA) PO ONE (17:45)
[2019-05-22] MEDS ORDERED: ANTACID SUSP 30 ML UDC (MYLANTA) PO ONE (17:45)
[2019-05-22] MEDS ORDERED: LIDOCAINE 2% VISCOUS 15 ML UDC PO ONE (17:45)
[2019-05-22] MEDS ORDERED: NITROGLYCERIN 0.4 MG SL TABS BTL 25'S SL ONE (18:00)
[2019-05-22] MEDS ORDERED: NITROGLYCERIN 0.4 MG SL TABS BTL 25'S SL PRN (18:15)
--- NOTE | 2019-05-22 18:15 | NUR ---
pt states after sublingual nitro that she feels a fluttering feeling in her chest, states the nitro did "not really" help the chest pain
[2019-05-22] MEDS ORDERED: IOHEXOL 350 MG/ML 150 ML (OMNIPAQUE 350) VIAL IV ONE (18:30)
[2019-05-22] MEDS ORDERED: NS 100 ML (IVPB) BAG IV ONE (18:30)
[2019-05-22] MEDS ORDERED: HOLD METFORMIN - RECEIVED CONTRAST 20 ML VIAL IV SCH (18:30)
--- NOTE | 2019-05-22 19:04 | Diagnostic Imaging Report ---
PROCEDURE: CT angiography of the chest with contrast. TECHNIQUE: Multiple contiguous axial images were obtained through the chest after uneventful bolus administration of intravenous contrast. 3D reconstructed CTA MIP acquisitions were also performed. Auto Exposure Controls were utilized during the CT exam to meet ALARA standards for radiation dose reduction. INDICATION: Shortness of breath, chest pain, tachycardia. COMPARISON: None. FINDINGS: The heart size is normal. The aorta and pulmonary arteries are grossly intact. No embolism or aortic pathology is seen. The visualized origins of the great vessels are normal. There is no pericardial or pleural effusion. There is no lymphadenopathy. Both lungs are clear. Osseous structures and visualized upper abdominal solid organs are intact. IMPRESSION: Negative CTA of the chest. Dictated by: Dictated on workstation # [id number]
--- NOTE | 2019-05-22 19:25 | NUR ---
pt sitting quietly in bed with family at bedside, pt denies any needs at this time, will continue to monitor
[2019-05-22] MEDS ORDERED: KETOROLAC 30 MG/ML VIAL IVP ONE (19:30)
[2019-05-22] MEDS ORDERED: RT-ALBUTEROL/IPRATROPIUM 3 ML (DUONEB) VIAL INH ONE (19:30)
[2019-05-22] MEDS ORDERED: PRD20T PO (19:53)
[2019-05-22] MEDS ORDERED: predniSONE 20 MG TAB PO ONE (20:00)
--- NOTE | 2019-05-22 20:07 | NUR ---
pt states pain is less than when she arrived, denies any needs or c/o, pt ambulatory off of unit with family
[2019-05-22 20:08] VITALS: BP 126/65
== END 2019-05-22 20:09 | disposition home or self-care (01) ==
LOC: EDUNIT# 16:07 → ER 16:09
DX: R07.9 Chest pain, unspecified (principal); R06.09 Other forms of dyspnea; Z86.718 Personal history of other venous thrombosis and embolism; Z79.84 Long term (current) use of oral hypoglycemic drugs; Z90.49 Acquired absence of other specified parts of digestive tract; Z90.710 Acquired absence of both cervix and uterus
CPT/HCPCS: 36415; 71045; 71275; 80053; 83735; 83874; 83880; 84484; 85025; 85379; 85610; 85730; 93005; 93041

== ENCOUNTER → 2019-06-02 | Outpatient (CLI) | payer SELFPAY ==
[~2019-06-02] MED LIST changes: +PRD20T PO
[2019-06-02 10:32] LABS: ALANINE AMINOTRANSFERASE 38 U/L (0-55); ALBUMIN 4.2 GM/DL (3.2-4.5); ALKALINE PHOSPHATASE 158 U/L (40-136); BILIRUBIN,TOTAL 0.8 MG/DL (0.1-1.0); BUN/CREATININE RATIO 11; CALCIUM 9.3 MG/DL (8.5-10.1); CARBON DIOXIDE 23 MMOL/L (21-32); CHLORIDE 106 MMOL/L (98-107); CREATININE SERUM 0.83 MG/DL (0.60-1.30); GFR ESTIMATED > 60; GLUCOSE 103 MG/DL (70-105); POTASSIUM 3.9 MMOL/L (3.6-5.0); SODIUM 140 MMOL/L (135-145); TOTAL PROTEIN 7.9 GM/DL (6.4-8.2)
--- NOTE | 2019-06-02 13:15 | Diagnostic Imaging Report ---
PROCEDURE: US Venous Lower Ext [place]. TECHNIQUE: Multiple real-time grayscale images were obtained over the lower extremities in various projections, bilaterally. Additional duplex Doppler and color Doppler images were also obtained. INDICATION: Pain and swelling FINDINGS: Spectral and color flow imaging of the deep venous system of the upper extremities was performed. The previous left upper extremity venous Doppler exam of 07/05/2018 failed to show any sign of a deep venous thrombosis. On this study there is generally good blood flow and compressibility of the deep venous system of each upper extremity. There is no sign of a deep venous thrombosis. IMPRESSION: There is no evidence of a deep venous thrombosis of either upper extremity. Dictated by: Dictated on workstation # [id number]
--- NOTE | 2019-06-02 19:53 | Diagnostic Imaging Report ---
INDICATION: Leg pain and swelling, history of DVT. FINDINGS: Spectral and color flow imaging in the deep venous system of bilateral lower extremities was performed. The prior bilateral lower extremity venous Doppler exam of 02/23/2012 failed to show any sign of a deep venous thrombosis beats. On this study, there is generally good blood flow and compressibility at all levels. There is no sign of a deep venous thrombosis. IMPRESSION: There is no evidence for a deep venous thrombosis of either lower extremity. Dictated by: Dictated on workstation # [id number]
== END ==
LOC: RAD 09:39
PROVIDERS: ATTEND Nurse Practitioner Family
DX: M79.662 Pain in left lower leg (principal); M79.661 Pain in right lower leg; M79.89 Other specified soft tissue disorders; R06.00 Dyspnea, unspecified; R01.1 Cardiac murmur, unspecified; Z86.718 Personal history of other venous thrombosis and embolism
CPT/HCPCS: 36415; 80053; 83880; 84443; 85379; 86038; 93306; 93970

== ENCOUNTER → 2019-06-09 | Outpatient (CLI) | payer OTHER | LOC: LAB 10:35 | PROVIDERS: ATTEND Nurse Practitioner Family | DX: R73.9 Hyperglycemia, unspecified (principal) | CPT/HCPCS: 36415; 83036 ==

== ENCOUNTER → 2019-06-14 | Outpatient (CLI) | payer OTHER ==
[~2019-06-14] MED LIST changes: +CATHETER FLUSH 10 ML SYR IV PRN; +REGADENOSON 0.4 MG/5 ML SYR (LEXISCAN) IV ONE
[2019-06-14 07:48] VITALS: BP 150/84
[2019-06-14 08:05] VITALS: BP 187/103
--- NOTE | 2019-06-15 13:52 | Cardiology Stress Test Report ---
Stress Test Report Type of NM Stress Test: Test Type: LEXISCAN 0.4MG/5ML Date of Procedure/Referring: Date of Procedure: Jun 14, 2019 PCP Jacklyn Jacob,Julius Admitting Physician Hao Jacob DO Indications: Shortness of breath Baseline Blood Pressure: Blood Pressure Systolic: 187 Blood Pressure Diastolic: 103 Summary & Conclusion: Summary: The patient was brought to the stress lab after informed consent was taken. Stress test was performed according to the Lexiscan protocol. 0.4 mg of IV Lexiscan was given. Please review Dr. Jacob's note on the stress test. 10.82 mCi of Myoview were given for rest imaging and 30.6 mCi of Myoview given for stress imaging. Transient ischemic dilatation score 1.07, Normal myocardial perfusion imaging during rest and stress. Conclusion: Pharmacological stress test was negative for ischemia. Normal myocardial perfusion imaging during rest and stress. Debora CABRERA MD Jun 15, 2019 13:52
== END ==
LOC: CARD 06:36
PROVIDERS: ATTEND Nurse Practitioner Family
DX: R06.02 Shortness of breath (principal)
CPT/HCPCS: 78452; 93017

== ENCOUNTER → 2019-07-07 | Outpatient (CLI) | payer OTHER ==
[~2019-07-07] MED LIST changes: -CATHETER FLUSH 10 ML SYR IV PRN; -REGADENOSON 0.4 MG/5 ML SYR (LEXISCAN) IV ONE
--- NOTE | 2019-07-07 11:48 | Diagnostic Imaging Report ---
INDICATION: Pulmonary hypertension and deep venous thrombosis. TECHNIQUE: PA and lateral views of the chest are obtained. COMPARISON: Comparison is made to study of 05/22/2019. FINDINGS: Heart size and pulmonary vascularity within normal limits. There is no pneumothorax or consolidation. Overall no adverse change is seen. IMPRESSION: No acute abnormality. Dictated by: Dictated on workstation # [id number]
== END ==
LOC: RT 11:01
PROVIDERS: ATTEND Internal Medicine Critical Care Medicine
DX: I27.0 Primary pulmonary hypertension (principal); I82.409 Acute embolism and thrombosis of unspecified deep veins of unspecified lower extremity; I89.0 Lymphedema, not elsewhere classified
CPT/HCPCS: 71046; 94761

== ENCOUNTER → 2019-07-12 | Outpatient (CLI) | payer OTHER ==
[~2019-07-12] MED LIST changes: +CATHETER FLUSH 10 ML SYR IV PRN
--- NOTE | 2019-07-12 15:00 | Diagnostic Imaging Report ---
INDICATION: Pulmonary hypertension. TECHNIQUE: The patient was administered 44.1 mCi of technetium 99m DTPA in the nebulizer with 1.1 mCi taken in by the patient. In addition, 5.5 mCi of technetium 99m MAA was administered intravenously and imaging over the chest was performed. FINDINGS: The ventilation portion of the study demonstrates homogeneous ventilation of both lungs. No ventilation defects are seen. The perfusion portion of the study demonstrates homogeneous perfusion to both lungs. No pleural-based perfusion defects are seen. IMPRESSION: Normal ventilation and perfusion lung scan. Dictated by: Dictated on workstation # [id number]
== END ==
LOC: CARD 12:52
PROVIDERS: ATTEND Internal Medicine Critical Care Medicine
DX: I27.20 Pulmonary hypertension, unspecified (principal); I89.0 Lymphedema, not elsewhere classified; Z86.718 Personal history of other venous thrombosis and embolism
CPT/HCPCS: 78582

== ENCOUNTER 2019-07-19 12:42 | Outpatient (CLI) | payer OTHER ==
[~2019-07-19 12:42] MED LIST changes: -CATHETER FLUSH 10 ML SYR IV PRN
== END 2019-07-19 13:10 | disposition home or self-care (01) ==
LOC: SLEEP 12:42
PROVIDERS: ATTEND Internal Medicine Critical Care Medicine
DX: G47.33 Obstructive sleep apnea (adult) (pediatric) (principal); I10 Essential (primary) hypertension; I49.9 Cardiac arrhythmia, unspecified

== ENCOUNTER → 2019-07-21 | Outpatient (CLI) | payer OTHER | LOC: LAB 11:07 | PROVIDERS: ATTEND Internal Medicine Critical Care Medicine | DX: I27.20 Pulmonary hypertension, unspecified (principal) | CPT/HCPCS: 36415; 83735; 85610; 85613; 85705; 85730; 86038; 86039; 86146; 86147; 86160; 86225; 86235 ==

== ENCOUNTER → 2019-08-10 | Outpatient (CLI) | payer OTHER | LOC: RAD 12:57 | PROVIDERS: ATTEND Nurse Practitioner Family | DX: N64.59 Other signs and symptoms in breast (principal) ==

== ENCOUNTER → 2019-08-10 | Outpatient (CLI) | payer SELFPAY ==
[~2019-08-10] MED LIST changes: +GADOBUTROL 7.5 MMOL/7.5 ML (GADAVIST) VIAL IV ONE
--- NOTE | 2019-08-10 18:18 | Diagnostic Imaging Report ---
EXAMINATION: MRI breast bilateral with and without contrast with 3D CAD TECHNIQUE: Utilizing a 1.5 Katie magnet, the patient was placed in the prone position with an 8-channel dual breast coil utilized. Axial STIR precontrasted and axial T1 fat-sat post contrast high-resolution images were obtained. Axial T2-weighted images precontrast bilaterally were performed as well. Axial vibrant temporal images were obtained pre and post contrast with bolus technique utilizing gadolinium. Images are post contrast immediately and subsequently for 7 minutes. Pre and post contrast images are then evaluated with CADstream for evaluation of possible angiogenesis. INDICATIONS: Long-standing bilateral clear nipple discharge. Patient also reports bilateral breast lumps and unspecified breast pain on breast MRI questionnaire. COMPARISON: Multiple prior breast MRIs, most recent performed on 02/09/2019. Comparison is also made to screening mammogram performed earlier today. FINDINGS: RIGHT BREAST: The breast parenchyma is composed almost entirely of fat. There is minimal background parenchymal enhancement. There is no suspicious mass or non-mass enhancement in the breast. There are multiple dilated ducts in the retroareolar region and anterior depth breast, similar in appearance to prior exams. There are no findings to suggest an enhancing intraductal mass. Incidental note is made of a small focus of enhancement in the skin of the lower inner breast at the 5 o'clock position approximately 5.5 cm from the nipple (image 73, series 801; image 344, series 9). There is no axillary or internal mammary adenopathy. LEFT BREAST: The breast parenchyma is composed almost entirely of fat. There is minimal background parenchymal enhancement. There is no suspicious mass or non-mass enhancement in the breast. There are multiple dilated ducts in the retroareolar region and anterior depth breast, similar in appearance to prior exams. There are no findings to suggest an enhancing intraductal mass. There is no axillary or internal mammary adenopathy. IMPRESSION: No MR evidence of malignancy in either breast. There has been no significant change compared to multiple prior breast MRIs. There is unchanged bilateral retroareolar duct ectasia, without evidence of enhancing intraductal mass. There are no findings to account for the patient's reported palpable abnormalities in either breast or the reported breast pain. Further management of these signs/symptoms should be based on clinical findings. Incidental note is made of a small area of enhancement in the skin of the 5 o'clock right breast approximately 5.5 cm from the nipple. This finding is nonspecific and may reflect a sebaceous cyst. Recommend correlation with physical exam, and dermatologic consult as indicated. FINAL ASSESSMENT: ACR BI-RADS Category 2: Benign Dictated by: Dictated on workstation # [id number]
== END ==
LOC: RAD 13:43
PROVIDERS: ATTEND Nurse Practitioner Family
DX: N60.42 Mammary duct ectasia of left breast (principal); N60.41 Mammary duct ectasia of right breast; N63.10 Unspecified lump in the right breast, unspecified quadrant; N63.20 Unspecified lump in the left breast, unspecified quadrant; N64.52 Nipple discharge
CPT/HCPCS: 77049

== ENCOUNTER 2019-09-20 07:40 | Outpatient (RCR) | payer OTHER ==
[2019-07-21 12:30] LABS: ALBUMIN 4.5 GM/DL (3.2-4.5); BUN/CREATININE RATIO 15; CALCIUM 9.5 MG/DL (8.5-10.1); CARBON DIOXIDE 27 MMOL/L (21-32); CHLORIDE 103 MMOL/L (98-107); CREATININE SERUM 0.88 MG/DL (0.60-1.30); GFR ESTIMATED > 60; GLUCOSE 103 MG/DL (70-105); PHOSPHORUS 3.4 MG/DL (2.3-4.7); POTASSIUM 4.1 MMOL/L (3.6-5.0); SODIUM 139 MMOL/L (135-145)
[2019-08-22 11:29] LABS: ALBUMIN 4.5 GM/DL (3.2-4.5); BUN/CREATININE RATIO 14; CALCIUM 9.8 MG/DL (8.5-10.1); CARBON DIOXIDE 26 MMOL/L (21-32); CHLORIDE 105 MMOL/L (98-107); CREATININE SERUM 0.93 MG/DL (0.60-1.30); GFR ESTIMATED > 60; GLUCOSE 109 MG/DL (70-105); PHOSPHORUS 3.4 MG/DL (2.3-4.7); POTASSIUM 4.1 MMOL/L (3.6-5.0); SODIUM 142 MMOL/L (135-145)
[~2019-09-20 07:40] MED LIST changes: -GADOBUTROL 7.5 MMOL/7.5 ML (GADAVIST) VIAL IV ONE
[2019-09-20 08:04] LABS: ALBUMIN 4.2 GM/DL (3.2-4.5); BUN/CREATININE RATIO 12; CALCIUM 9.2 MG/DL (8.5-10.1); CARBON DIOXIDE 23 MMOL/L (21-32); CHLORIDE 107 MMOL/L (98-107); CREATININE SERUM 1.01 MG/DL (0.60-1.30); GFR ESTIMATED > 60; GLUCOSE 104 MG/DL (70-105); PHOSPHORUS 2.5 MG/DL (2.3-4.7); POTASSIUM 4.3 MMOL/L (3.6-5.0); SODIUM 141 MMOL/L (135-145)
== END 2019-10-19 | disposition home or self-care (01) ==
LOC: LAB 07:40
PROVIDERS: ATTEND Internal Medicine Critical Care Medicine
DX: I27.20 Pulmonary hypertension, unspecified (principal)
CPT/HCPCS: 36415; 80069; 83880

== ENCOUNTER → 2019-09-22 | Outpatient (CLI) | payer OTHER | LOC: LAB 10:13 | PROVIDERS: ATTEND Internal Medicine Rheumatology | DX: R76.8 Other specified abnormal immunological findings in serum (principal) | CPT/HCPCS: 36415; 86200; 86235; 86431 ==

== ENCOUNTER → 2019-10-11 | Outpatient (CLI) | payer OTHER ==
--- NOTE | 2019-10-11 12:59 | Diagnostic Imaging Report ---
INDICATION: Back pain. TIME OF EXAM: 10:55 AM. TECHNIQUE: Three views of the lumbar spine were obtained. FINDINGS: The curvature and alignment are normal. The vertebral body heights are maintained. No acute compression fracture is seen. There is generalized degenerative disc disease with variable disc space narrowing and marginal spurring. IMPRESSION: Lumbar spondylosis. No acute bony abnormality is detected. Dictated by: Dictated on workstation # [id number]
== END ==
LOC: RAD 10:36
PROVIDERS: ATTEND Nurse Practitioner Family
DX: M47.816 Spondylosis without myelopathy or radiculopathy, lumbar region (principal)
CPT/HCPCS: 72100

== ENCOUNTER 2019-11-21 09:40 | Outpatient (RCR) | payer OTHER ==
[2019-10-21 10:43] LABS: ALBUMIN 4.3 GM/DL (3.2-4.5); BUN/CREATININE RATIO 18; CALCIUM 9.4 MG/DL (8.5-10.1); CARBON DIOXIDE 27 MMOL/L (21-32); CHLORIDE 106 MMOL/L (98-107); CREATININE SERUM 1.04 MG/DL (0.60-1.30); GFR ESTIMATED > 60; GLUCOSE 91 MG/DL (70-105); PHOSPHORUS 3.4 MG/DL (2.3-4.7); POTASSIUM 4.1 MMOL/L (3.6-5.0); SODIUM 142 MMOL/L (135-145)
[2019-11-21 10:15] LABS: ALBUMIN 4.4 GM/DL (3.2-4.5); BUN/CREATININE RATIO 14; CALCIUM 9.6 MG/DL (8.5-10.1); CARBON DIOXIDE 25 MMOL/L (21-32); CHLORIDE 107 MMOL/L (98-107); CREATININE SERUM 1.06 MG/DL (0.60-1.30); GFR ESTIMATED > 60; GLUCOSE 117 MG/DL (70-105); PHOSPHORUS 3.3 MG/DL (2.3-4.7); POTASSIUM 4.1 MMOL/L (3.6-5.0); SODIUM 141 MMOL/L (135-145)
== END 2020-01-19 | disposition home or self-care (01) ==
LOC: LAB 09:40
PROVIDERS: ATTEND Internal Medicine Critical Care Medicine
DX: I27.20 Pulmonary hypertension, unspecified (principal)
CPT/HCPCS: 36415; 80069; 83880

== ENCOUNTER 2019-12-25 15:42 | Emergency (ER) | payer OTHER ==
[~2019-12-25] VITALS: Ht 162 cm; Wt 98.4 kg
--- NOTE | 2019-12-25 16:05 | ED Cough/URI ---
General Stated Complaint: CHEST TIGHTNESS/PAIN/DIARRHEA/BODY ACHES/COUGH Source: patient Exam Limitations: no limitations History of Present Illness Date Seen by Provider: Dec 25, 2019 Time Seen by Provider: 16:02 Initial Comments To ER with body aches general malaise intermittent cough, no known fevers at home but she has had chills. She's been seen at urgent care 3 times, has been on a steroid and antibiotic without improvement. No travel outside of [facility] in 14 days of symptom onset. She states that she has not had any worsening of symptoms, she is here today because of failure to improve. Timing/Duration: constant Severity/Quality: dry cough Associated Symptoms: cough, fever/chills (chills but no measured fever), other (no nasal drainage) Allergies and Home Medications Allergies Coded Allergies: No Known Drug Allergies (Unverified , 06/03/16) Home Medications Cholecalciferol (Vitamin D3) 1,000 Unit Tablet, 1,000 UNIT PO DAILY, (Reported) Cyanocobalamin (Vitamin B-12) 5,000 Mcg Tab.rapdis, 2,500 MCG PO DAILY, (Reported) TAKES 1/2 (5,000MCG) TABLET Ergocalciferol (Vitamin D2) 50,000 Unit Capsule, 50,000 UNIT PO [place], (Reported) Metformin HCl 500 Mg Tablet, 250 MG PO BID, (Reported) TAKES 1/2 (500MG) TABLET Potassium Chloride 20 Meq Tab.er.prt, 20 MEQ PO BID, (Reported) Prednisone 20 Mg Tab, 40 MG PO DAILY Prescribed by: BETH HERNÁNDEZ on 05/22/191952 Topiramate 25 Mg Tablet, 25 MG PO BID, (Reported) Triamterene/Hydrochlorothiazid 1 Each Tablet, 1 TAB PO DAILY, (Reported) Patient Home Medication List Home Medication List Reviewed: Yes Review of Systems Review of Systems Constitutional: see HPI, chills, malaise, weakness Respiratory: see HPI, cough; No hemoptysis, No orthopnea, No short of breath Cardiovascular: no symptoms reported Genitourinary: no symptoms reported Musculoskeletal: no symptoms reported Skin: no symptoms reported Psychiatric/Neurological: No Symptoms Reported Hematologic/Lymphatic: No Symptoms Reported Immunological/Allergic: no symptoms reported Past Dilnepr-Czhmeb-Avbqng Hx Patient Social History 2nd Hand Smoke Exposure: No Recent Foreign Travel: No Contact w/Someone Who Travel: No Recent Hopitalizations: No Immunizations Up To Date Tetanus Booster (TDap): Unknown PED Vaccines UTD: No Seasonal Allergies Seasonal Allergies: No Past Medical History Surgeries: Yes Appendectomy, Hysterectomy Respiratory: No Currently Using CPAP: No Currently Using BIPAP: No Cardiac: Yes Deep Vein Thrombosis Neurological: No Reproductive Disorders: Yes (1999 total hysterectomy) Female Reproductive Disorders: Denies GLOVE FORMER History: Hysterectomy Sexually Transmitted Disease: No HIV/AIDS: No Gastrointestinal: No Musculoskeletal: No Endocrine: No Cancer: No Psychosocial: No Integumentary: No Blood Disorders: No Family Medical History Patient reports no known family medical history. No Pertinent Family Hx Physical Exam Vital Signs - First Documented 12/25/19 15:48 Temp 38.0 Pulse 89 Resp 18 B/P (MAP) 137/79 (98) Pulse Ox 97 O2 Delivery Room Air Capillary Refill : Height: 5'4.00" Weight: 190lbs. 0.0oz. 86.658265xq; 33.8 BMI Method:Stated General Appearance: WD/WN, no apparent distress Eyes: Bilateral Eye Normal Inspection, Bilateral Eye PERRL, Bilateral Eye EOMI HEENT: PERRL/EOMI, normal ENT inspection Neck: non-tender, full range of motion Respiratory: lungs clear, normal breath sounds, no respiratory distress, no accessory muscle use; No wheezing; other (no tachypnea and no respiratory distress, oxygen saturation 98% room air, not tachycardic. Lung mclean are clear to auscultation throughout.) Cardiovascular: regular rate, rhythm, no murmur Gastrointestinal: normal bowel sounds, soft Neurologic/Psychiatric: alert, normal mood/affect, oriented x 3 Skin: normal color, warm/dry Progress/Results/Core Measures Suspected Sepsis SIRS Temperature: Pulse: Respiratory Rate: Laboratory Tests 12/25/19 15:57: White Blood Count 10.4 Blood Pressure / Mean: Laboratory Tests 12/25/19 15:57: Creatinine 1.23, Platelet Count 321, Total Bilirubin 0.3 Results/Orders Lab Results Laboratory Tests Test 12/25/19 15:57 12/25/19 16:15 Range/Units White Blood Count 10.4 4.3-11.0 10^3/uL Red Blood Count 4.81 4.35-5.85 10^6/uL Hemoglobin 15.0 11.5-16.0 G/DL Hematocrit 46 35-52 % Mean Corpuscular Volume 97 80-99 FL Mean Corpuscular Hemoglobin 31 25-34 PG Mean Corpuscular Hemoglobin Concent 32 32-36 G/DL Red Cell Distribution Width 14.9 H 10.0-14.5 % Platelet Count 321 130-400 10^3/uL Mean Platelet Volume 9.0 7.4-10.4 FL Neutrophils (%) (Auto) 61 42-75 % Lymphocytes (%) (Auto) 30 12-44 % Monocytes (%) (Auto) 7 0-12 % Eosinophils (%) (Auto) 1 0-10 % Basophils (%) (Auto) 0 0-10 % Neutrophils # (Auto) 6.3 1.8-7.8 X 10^3 Lymphocytes # (Auto) 3.2 1.0-4.0 X 10^3 Monocytes # (Auto) 0.8 0.0-1.0 X 10^3 Eosinophils # (Auto) 0.1 0.0-0.3 10^3/uL Basophils # (Auto) 0.0 0.0-0.1 10^3/uL Sodium Level 142 135-145 MMOL/L Potassium Level 4.4 3.6-5.0 MMOL/L Chloride Level 107 98-107 MMOL/L Carbon Dioxide Level 23 21-32 MMOL/L Anion Gap 12 5-14 MMOL/L Blood Urea Nitrogen 18 7-18 MG/DL Creatinine 1.23 0.60-1.30 MG/DL Estimat Glomerular Filtration Rate 54 BUN/Creatinine Ratio 15 Glucose Level 113 H 70-105 MG/DL Calcium Level 9.2 8.5-10.1 MG/DL Corrected Calcium 9.0 8.5-10.1 MG/DL Total Bilirubin 0.3 0.1-1.0 MG/DL Aspartate Amino Transf (AST/SGOT) 22 5-34 U/L Alanine Aminotransferase (ALT/SGPT) 32 0-55 U/L Alkaline Phosphatase 127 40-136 U/L C-Reactive Protein High Sensitivity 0.10 0.00-0.50 MG/DL Total Protein 8.1 6.4-8.2 GM/DL Albumin 4.3 3.2-4.5 GM/DL Procalcitonin <0.10 NG/ML Group A Streptococcus Screen NEGATIVE NEGATIVE Urine Color YELLOW Urine Clarity CLEAR Urine pH 6.0 5-9 Urine Specific [place] 1.025 H 1.016-1.022 Urine Protein NEGATIVE NEGATIVE Urine Glucose (UA) NEGATIVE NEGATIVE Urine Ketones NEGATIVE NEGATIVE Urine Nitrite NEGATIVE NEGATIVE Urine Bilirubin NEGATIVE NEGATIVE Urine Urobilinogen 0.2 < = 1.0 MG/DL Urine Leukocyte Esterase NEGATIVE NEGATIVE Urine RBC (Auto) NEGATIVE NEGATIVE Urine RBC NONE /HPF Urine WBC NONE /HPF Urine Squamous Epithelial Cells 2-5 /HPF Urine Crystals NONE /LPF Urine Bacteria TRACE /HPF Urine Casts NONE /LPF Urine Mucus NEGATIVE /LPF Urine Culture Indicated NO Micro Results Microbiology 12/25/19 Influenza Types A,B Antigen (MARLEN) - Final, Complete My Orders Orders - WILIAM LOPEZ APRN Influenza A And B Antigens (12/25/19 15:49) Rapid Strep A Screen (12/25/19 15:49) Cbc With Automated Diff (12/25/19 15:49) Comprehensive Metabolic Panel (12/25/19 15:49) Ua Culture If Indicated (12/25/19 15:49) Acetaminophen Tablet/Caplet (Tylenol T (12/25/19 16:15) Procalcitonin (Pct) (12/25/19 16:12) Hs C Reactive Protein (12/25/19 16:12) Medications Given in ED Current Medications Medications Dose Ordered Sig/Sudhakar Route Start Time Stop Time Status Last Admin Dose Admin Acetaminophen 650 mg ONCE ONCE PO 12/25/19 16:15 12/25/19 16:16 DC 12/25/19 16:18 650 MG Vital Signs/I&O 12/25/19 12/25/19 15:48 16:18 Temp 38.0 38.0 Pulse 89 Resp 18 B/P (MAP) 137/79 (98) Pulse Ox 97 O2 Delivery Room Air Capillary Refill : Departure Communication (Admissions) She will meet the criteria for coronavirus testing through [facility] E Impression Primary Impression: Viral syndrome Disposition: 01 HOME, SELF-CARE Condition: Stable Departure-Patient Inst. Decision time for Depature: 16:28 Referrals: SANDRA ISAAC DO (PCP/Family) Primary Care Physician Patient Instructions: Viral Syndrome (DC) Add. Discharge Instructions: 1. Tylenol for fever control 2. Increase fluid intake 3. Return to ER for any worsening. You should stay at home quarantined as should your and anyone who lives with you at least until your coronavirus testing results returned which can take up to 5 days. Copy Copies To 1: SANDRA ISAAC PETER J APRN Dec 25, 2019 16:05
[2019-12-25] MEDS ORDERED: ACETAMINOPHEN 325 MG TABLET PO ONE (16:15)
[2019-12-25 16:16] LABS: BASOPHILS % (AUTO) 0 % (0-10); EOSINOPHILS # (AUTO) 0.1 10^3/uL (0.0-0.3); EOSINOPHILS % (AUTO) 1 % (0-10); HEMATOCRIT 46 % (35-52); LYMPHOCYTES # (AUTO) 3.2 X 10^3 (1.0-4.0); LYMPHOCYTES % (AUTO) 30 % (12-44); MEAN CORPUSCULAR HEMOGLOBIN 31 PG (25-34); MEAN CORPUSCULAR HGB CONC 32 G/DL (32-36); MEAN CORPUSCULAR VOLUME 97 FL (80-99); MONOCYTES # (AUTO) 0.8 X 10^3 (0.0-1.0); MONOCYTES % (AUTO) 7 % (0-12); NEUTROPHILS # (AUTO) 6.3 X 10^3 (1.8-7.8); NEUTROPHILS % (AUTO) 61 % (42-75); PLATELET COUNT 321 10^3/uL (130-400); RED CELL DISTRIBUTION WIDTH 14.9 % (10.0-14.5); WHITE BLOOD COUNT 10.4 10^3/uL (4.3-11.0)
[2019-12-25 16:31] LABS: BILIRUBIN,URINE NEGATIVE (NEGATIVE); CLARITY,URINE CLEAR; COLOR,URINE YELLOW; GLUCOSE, URINE (UA) NEGATIVE (NEGATIVE); KETONES,URINE NEGATIVE (NEGATIVE); LEUKOCYTE ESTERASE ,URINE NEGATIVE (NEGATIVE); NITRITE,URINE NEGATIVE (NEGATIVE); PROTEIN,URINE NEGATIVE (NEGATIVE)
[2019-12-25 16:37] LABS: BACTERIA,URINE TRACE /HPF
[2019-12-25 16:39] LABS: ALBUMIN 4.3 GM/DL (3.2-4.5); BILIRUBIN,TOTAL 0.3 MG/DL (0.1-1.0); CALCIUM 9.2 MG/DL (8.5-10.1); CREATININE SERUM 1.23 MG/DL (0.60-1.30); POTASSIUM 4.4 MMOL/L (3.6-5.0); TOTAL PROTEIN 8.1 GM/DL (6.4-8.2)
[2019-12-25 16:59] VITALS: BP 137/79
--- NOTE | 2019-12-25 17:01 | NUR ---
Patient discharged by Dennys Edmonds NP. Covid-19 swab obtained by Dennys Edmonds NP. Patient given instructions to remain quarantined at home until results are obtained. Paperwork for [facility] Coronavirus disease testing filled out and sent with swab to lab.
== END 2019-12-25 17:03 | disposition home or self-care (01) ==
LOC: EDUNIT# 15:42 → ER 15:44
DX: B34.9 Viral infection, unspecified (principal); Z86.718 Personal history of other venous thrombosis and embolism; Z79.84 Long term (current) use of oral hypoglycemic drugs
CPT/HCPCS: 36415; 80053; 81000; 84145; 85025; 86141; 87430; 87635; 87804

== ENCOUNTER → 2020-03-08 | Outpatient (CLI) | payer OTHER ==
--- NOTE | 2020-03-08 20:09 | Diagnostic Imaging Report ---
INDICATION: Left palpable nodule, superiorly, on earlier mammography revealed fatty breast with no underlying mass or sonographic abnormality at the site of clinical complaint. We therefore proceeded with targeted right breast ultrasound. FINDINGS: Sonographic surveillance throughout the region of palpable fullness showed no solid or cystic mass. No ductal ectasia. No fluid collection. IMPRESSION: Normal negative targeted right breast ultrasound. If there is a clinically suspicious palpable lesion requiring further workup that workup would need to be directed on a clinical basis as the imaging today was negative. ACR BI-RADS Category 1: Negative. Result letter will be mailed to the patient. Note: At least 10% of breast cancer is not imaged by mammography. Dictated by: Dictated on workstation # [id number]
--- NOTE | 2020-03-08 20:56 | Diagnostic Imaging Report ---
INDICATION: Palpable lump, superiorly, in the right breast. COMPARISON: 08/2019, 07/2018 and 03/2016. FINDINGS: Brachial pattern predominantly fatty. Surface marker placed at the site of complaint. No underlying or mammographic apparent abnormality at that level. The right mammogram was stable and normal at both 2D and 3D digital tomosynthesis. IMPRESSION: Normal negative unilateral right diagnostic mammogram. However, as a benign explanation for the abnormal clinical exam is not revealed, we are proceeding with targeted right breast ultrasound that study currently pending and will be dictated separately. ACR BI-RADS Category 0: Incomplete. (Needs additional imaging evaluation). Right breast ultrasound pending. Result letter will be mailed to the patient. Note: At least 10% of breast cancer is not imaged by mammography. Dictated by: Dictated on workstation # [id number]
== END ==
LOC: RAD 12:04
PROVIDERS: ATTEND Nurse Practitioner Family
DX: N60.01 Solitary cyst of right breast (principal); N63.10 Unspecified lump in the right breast, unspecified quadrant

== ENCOUNTER 2020-07-31 12:40 | Outpatient (CLI) | payer OTHER | END 2020-07-31 13:10 | disposition home or self-care (01) | LOC: SLEEP 12:40 | PROVIDERS: ATTEND Internal Medicine Critical Care Medicine | DX: G47.33 Obstructive sleep apnea (adult) (pediatric) (principal); Z20.828 Contact with and (suspected) exposure to other viral communicable diseases ==

== ENCOUNTER → 2020-08-10 | Outpatient (CLI) | payer OTHER ==
--- NOTE | 2020-08-10 14:19 | Diagnostic Imaging Report ---
INDICATION: Patient denies new symptoms on today's study. Patient claims a palpable lump upper outer right breast that has been previously evaluated and is unchanged. There is also mild breast pain. Correlation is made prior mammograms 03/08/2020, 08/10/2019 and 08/04/2018. 2-D and 3-D bilateral diagnostic mammography was performed with CAD. Scattered fibroglandular densities are noted bilaterally. Overall parenchymal pattern is stable. No masses or malignant-appearing microcalcifications are seen. Axillae are unremarkable. IMPRESSION: BI-RADS Category 1 No mammographic features suspicious for malignancy are identified. ACR BI-RADS Category 1: Negative. Result letter will be mailed to the patient. Note: At least 10% of breast cancer is not imaged by mammography. Dictated by: Dictated on workstation # [id number]
== END ==
LOC: RAD 13:15
PROVIDERS: ATTEND Nurse Practitioner Family
DX: N60.01 Solitary cyst of right breast (principal); N63.0 Unspecified lump in unspecified breast
CPT/HCPCS: 77066; G0279; 77062

== ENCOUNTER → 2020-08-22 | Outpatient (CLI) | payer OTHER ==
[2020-08-22 09:46] LABS: ALBUMIN 4.5 GM/DL (3.2-4.5); CHLORIDE 104 MMOL/L (98-107); POTASSIUM 4.5 MMOL/L (3.6-5.0); SODIUM 142 MMOL/L (135-145)
[2020-08-22 09:48] LABS: CALCIUM 9.6 MG/DL (8.5-10.1); GLUCOSE 103 MG/DL (70-105)
[2020-08-22 09:50] LABS: CARBON DIOXIDE 28 MMOL/L (21-32)
[2020-08-22 09:52] LABS: CREATININE SERUM 1.03 MG/DL (0.60-1.30); GFR ESTIMATED > 60; PHOSPHORUS 3.9 MG/DL (2.3-4.7)
[2020-08-22 09:53] LABS: BUN/CREATININE RATIO 15
== END ==
LOC: LAB 08:48
PROVIDERS: ATTEND Internal Medicine Critical Care Medicine
DX: I27.20 Pulmonary hypertension, unspecified (principal)
CPT/HCPCS: 36415; 80069; 83880

== ENCOUNTER → 2020-09-27 | Outpatient (CLI) | payer OTHER | LOC: LAB 08:38 | PROVIDERS: ATTEND Nurse Practitioner Family | DX: J04.0 Acute laryngitis (principal); R53.83 Other fatigue | CPT/HCPCS: 36415; 84443 ==

== ENCOUNTER → 2021-07-29 | Outpatient (CLI) | payer OTHER ==
[~2021-07-29] MED LIST changes: -PHEN37.53 PO; +PHEN37.58 PO
--- NOTE | 2021-07-29 14:16 | Diagnostic Imaging Report ---
INDICATION: Clear nipple discharge. Comparison is made with prior mammogram 08/10/2020 and 03/08/2020 as well as 08/10/2019. 2-D and 3-D bilateral diagnostic mammography was performed with CAD. Scattered fibroglandular densities are identified bilaterally. No mass or malignant-appearing microcalcification are seen. Axillae are unremarkable. IMPRESSION: BI-RADS Category 1 No mammographic features suspicious for malignancy are identified. ACR BI-RADS Category 1: Negative. Result letter will be mailed to the patient. Note: At least 10% of breast cancer is not imaged by mammography. Dictated by: Dictated on workstation # [id number]
== END ==
LOC: RAD 13:00
PROVIDERS: ATTEND Internal Medicine
DX: N64.52 Nipple discharge (principal)
CPT/HCPCS: 77066; G0279; 77062

== ENCOUNTER 2021-07-30 14:25 | Outpatient (RCR) | payer OTHER | END 2021-08-20 | disposition home or self-care (01) | PROVIDERS: ATTEND Anesthesiology Pain Medicine | DX: M79.18 Myalgia, other site (principal); M54.6 Pain in thoracic spine; Z96.651 Presence of right artificial knee joint | CPT/HCPCS: 97163; G0283 ==

== ENCOUNTER → 2022-01-02 | Outpatient (CLI) | payer OTHER ==
[~2022-01-02] MED LIST changes: +CATHETER FLUSH 10 ML SYR IVP PRN; +POTA-169 PO; -POTA20TA8 PO
--- NOTE | 2022-01-02 16:24 | Diagnostic Imaging Report ---
Exam: Nuclear medicine three-phase bone scan. Date: January 02, 2022. Indication: 61-year-old female, concern for tibial stress fracture on the right. Comparison: None available. Findings: 26.2 mCi of technetium labeled MDP was administered. Blood flow, blood pool and delayed scintigraphic images were obtained in the region of both knees. There is radiotracer uptake adjacent to a right knee prosthesis which is diffusely surrounding the prosthesis. There is no identified particularly prominent radiotracer uptake on the left. There is also increased blood flow in the region of the right extremity. Impression: Diffuse radiotracer uptake adjacent to a right knee prosthesis with asymmetrically increased blood flow to the right lower extremity. This does raise concern for potential septic arthritis and osteomyelitis. Loosening is also considered. Correlation clinically and with current radiographs is recommended. Report was faxed to the office of Dr. Galindo Hull at 4:22 p.m., by sylvain. Dictated by: Dictated on workstation # [id number]
== END ==
LOC: CARD 12:00
PROVIDERS: ATTEND Orthopaedic Surgery Sports Medicine
DX: M84.361A Stress fracture, right tibia, initial encounter for fracture (principal); Z96.651 Presence of right artificial knee joint
CPT/HCPCS: 78315; A9503

== ENCOUNTER → 2022-01-24 | Outpatient (CLI) | payer OTHER ==
[~2022-01-24] MED LIST changes: -CATHETER FLUSH 10 ML SYR IVP PRN
--- NOTE | 2022-01-24 11:20 | Diagnostic Imaging Report ---
PROCEDURE: US venous upper extremity left. TECHNIQUE: Multiple realtime grayscale images were obtained of left upper extremity in various projections. Additional spectral analysis and color Doppler duplex images were also obtained. INDICATION: Left upper extremity pain and swelling. History of previous DVT. FINDINGS: Color Doppler imaging. There is normal color-flow enhancement throughout the left upper extremity venous system. Forearm compression showed normal augmentation of flow. No thrombus is seen. IMPRESSION: No evidence of venous thrombosis within the left upper extremity. Dictated by: Dictated on workstation # [id number]
== END ==
LOC: RAD 09:40
PROVIDERS: ATTEND Nurse Practitioner Family
DX: M79.629 Pain in unspecified upper arm (principal); R59.0 Localized enlarged lymph nodes; Z86.718 Personal history of other venous thrombosis and embolism

== ENCOUNTER → 2022-01-29 | Outpatient (CLI) | payer OTHER ==
--- NOTE | 2022-01-29 14:17 | Diagnostic Imaging Report ---
INDICATION: Palpable lump in the left breast. COMPARISON: 07/29/2021 and 08/10/2020. TECHNIQUE: Unilateral left 2D and 3D diagnostic mammography was performed with CAD. BB markers were placed at the areas of palpable abnormality in the upper left breast. FINDINGS: Scattered fibroglandular densities in the left breast are noted. No underlying mass is seen. No malignant appearing microcalcifications are identified. The left axilla is unremarkable. IMPRESSION: No mammographic features suspicious for malignancy are identified. Even so, directed sonographic interrogation of the areas of palpable abnormality in the upper left breast is recommended and will be performed today. ACR BI-RADS Category 0: Incomplete. (Needs additional imaging evaluation). Result letter will be mailed to the patient. Note: At least 10% of breast cancer is not imaged by mammography. Dictated by: Dictated on workstation # [id number]
--- NOTE | 2022-01-29 20:20 | Diagnostic Imaging Report ---
INDICATION: Palpable lumps left breast. Correlation is made with diagnostic mammogram earlier same day. Sonographic interrogation of the area of lumps in the upper left breast were performed. No sonographic abnormalities identified. No solid or cystic mass is detected. IMPRESSION: No mammographic features suspicious for malignancy are identified. ACR BI-RADS Category 1: Negative. Result letter will be mailed to the patient. Note: At least 10% of breast cancer is not imaged by mammography. Dictated by: Dictated on workstation # [id number]
== END ==
LOC: RAD 12:45
PROVIDERS: ATTEND Nurse Practitioner Family
DX: N63.10 Unspecified lump in the right breast, unspecified quadrant (principal); N63.20 Unspecified lump in the left breast, unspecified quadrant
CPT/HCPCS: 76642; 77065; G0279

== ENCOUNTER 2022-05-02 08:28 | Outpatient (RCR) | payer OTHER | END 2022-05-04 | disposition home or self-care (01) | PROVIDERS: ATTEND Orthopaedic Surgery | DX: M25.561 Pain in right knee (principal); E11.9 Type 2 diabetes mellitus without complications; Z96.651 Presence of right artificial knee joint ==

== ENCOUNTER → 2022-06-04 | Outpatient (RCR) | payer OTHER | END | disposition home or self-care (01) | PROVIDERS: ATTEND Orthopaedic Surgery | DX: E11.9 Type 2 diabetes mellitus without complications (principal); Z96.651 Presence of right artificial knee joint ==

== ENCOUNTER 2022-06-20 09:09 | Outpatient (RCR) | payer OTHER | END 2022-07-04 | disposition home or self-care (01) | PROVIDERS: ATTEND Orthopaedic Surgery | DX: Z47.1 Aftercare following joint replacement surgery (principal); E11.9 Type 2 diabetes mellitus without complications; Z96.651 Presence of right artificial knee joint ==

== ENCOUNTER → 2022-09-03 | Outpatient (RCR) | payer OTHER | END | disposition still patient (30) | PROVIDERS: ATTEND Orthopaedic Surgery | DX: Z96.651 Presence of right artificial knee joint (principal); E11.9 Type 2 diabetes mellitus without complications; M25.561 Pain in right knee ==

== ENCOUNTER 2022-10-01 10:30 | Outpatient (RCR) | payer OTHER | END 2022-10-04 | disposition home or self-care (01) | PROVIDERS: ATTEND Orthopaedic Surgery | DX: Z96.651 Presence of right artificial knee joint (principal); E11.9 Type 2 diabetes mellitus without complications ==